=== PATIENT | male | born 1960 | race African-American/Black ===

== ENCOUNTER 2021-01-14 16:07 | Emergency (ER) | payer SELFPAY ==
[~2021-01-14] VITALS: Ht 190.5 cm; Wt 90.0 kg
[~2021-01-14 16:07] MED LIST: AMLO-186 PO; ASPI-886 PO; CARV12.511 PO; CLON0.3T PO; Folic Acid PO; HYDR-2869 PO; ISOS20TA6 PO; THIA100T22 PO
[2021-01-14] MEDS ORDERED: fentaNYL PF VIAL 100 MCG/2 ML VIAL IVP ONE (16:30)
--- NOTE | 2021-01-14 16:34 | PHYS DOC ---
Past Medical History Past Medical History: High Cholesterol, Hypertension, Stroke Additional Past Medical Histor: "STROKE X2", ESRD, "IRREGULAR HEART" Past Surgical History: Other Additional Past Surgical Histo: DIALYSIS CATHETER PLACEMENT Smoking Status: Current Every Day Smoker Alcohol Use: Heavy General Adult EDM: Chief Complaint: BACK PAIN OR INJURY HPI: HPI: Patient is a 60 year old male who presents with bilateral back pain and dizziness that started today. States he went to his dialysis place and he told him he needed to come to emergency room. States he did go to work today and he should have. He states that he has been drinking enough water and has been urinating enough. He states he just does not feel good. He denies chest pain, shortness of air, fever, numbness or tingling, focal weakness, vision change, headache, dizziness, syncope, mannie pain, nausea, vomiting, urinary symptoms, diarrhea. Patient was recently diagnosed in October with acute renal failure. He was last admitted for hyperkalemia in November. Patient states he does go to dialysis Thursday, , Saturdays. He states he did go Thursday. He sees Dr. Remy. He has a history of smoking, CVA x2, high cholesterol, a right chest dialysis port, alcoholism, renal failure, hyperkalemia and hypertension. He rates his pain a aching 10 out of 10 at this time. He denies loss of bowel bladder. Review of Systems: Review of Systems: Constitutional: Denies fever or chills. [] Eyes: Denies change in visual acuity. [] HENT: Denies nasal congestion or sore throat. [] Respiratory: Denies cough or shortness of breath. [] Cardiovascular: Denies chest pain or edema. [] GI: Denies abdominal pain, nausea, vomiting, bloody stools or diarrhea. [] : Denies dysuria. [] Musculoskeletal: + bilateral back pain or joint pain. [] Integument: Denies rash. [] Neurologic: Denies headache, focal weakness or sensory changes. +dizziness[] Endocrine: Denies polyuria or polydipsia. [] Lymphatic: Denies swollen glands. [] Psychiatric: Denies depression or anxiety. [] Heart Score: C/O Chest Pain: No HEART Score for Chest Pain: HEART Score for Chest Pain Response (Comments) Value History Slighlty/Non-Suspicious 0 ECG Normal 0 Age >45 - < 65 1 Risk Factors 1 or 2 Risk Factors 1 Troponin < Normal Limit 0 Total 2 Risk Factors: Risk Factors: DM, Current or recent (<one month) smoker, HTN, HLP, family history of CAD, obesity. Risk Scores: Score 0 - 3: 2.5% MACE over next 6 weeks - Discharge Home Score 4 - 6: 20.3% MACE over next 6 weeks - Admit for Clinical Observation Score 7 - 10: 72.7% MACE over next 6 weeks - Early Invasive Strategies Current Medications: Current Medications Medications (Trade) Dose Ordered Sig/Remi Start Time Stop Time Status Last Admin Dose Admin Fentanyl Citrate (Fentanyl 2ml Vial) 50 mcg 1X ONCE 01/14/21 16:30 01/14/21 16:31 Allergies: Allergies: Allergies Coded Allergies Type Severity Reaction Last Updated Verified lisinopril Allergy Severe Swelling 11/04/20 Yes Physical Exam: PE: Constitutional: Well developed, well nourished, no acute distress, non-toxic appearance. [] HENT: Normocephalic, atraumatic, bilateral external ears normal, oropharynx moist, no oral exudates, nose normal. [] Eyes: PERRLA, EOMI, conjunctiva normal, no discharge. [] Neck: Normal range of motion, no tenderness, supple, no stridor. [] Cardiovascular:Heart rate regular rhythm, no murmur [] Lungs & Thorax: Bilateral breath sounds clear to auscultation [] Abdomen: Bowel sounds normal, soft, no tenderness, no masses, no pulsatile masses. [] Skin: Warm, dry, no erythema, no rash. [] Back: No tenderness, bilateral CVA tenderness. [] Extremities: No tenderness, no cyanosis, no clubbing, ROM intact, no edema. [] Neurologic: Alert and oriented X 3, normal motor function, normal sensory function, no focal deficits noted. [] Psychologic: Affect normal, judgement normal, mood normal. [] Current Patient Data: Vital Signs: Vital Signs Date Time Temp Pulse Resp B/P (MAP) Pulse Ox O2 Delivery O2 Flow Rate FiO2 01/14/21 16:19 98.9 77 12 150/95 (102) 97 Room Air 98.9 EKG: EK and read by Dr Dubois as Sinus Rhythm and no STEMI Radiology/Procedures: Radiology/Procedures: [] Impression: [facility] [address] [place] [address] IMAGING REPORT Signed PATIENT: LITA PASTRANA ACCOUNT: [id number] : 1960 LOCATION: ER AGE: 60 SEX: M EXAM STATUS: REG ER ORD. PHYSICIAN: MOLLY SIERRA APRN REASON: dizziness PROCEDURE: PORTABLE CHEST 1V XR CHEST 1V History: Reason: dizziness / Spl. Instructions: / History: Comparison: December 11, 2020 Findings: No consolidation or pleural effusion. Normal heart size. No pneumothorax. Right IJ central line with tip projecting over the cavoatrial junction. Impression: 1. No acute cardiopulmonary process. Electronically signed by: Mk Sousa DO (01/14/2021 5:25 PM) [id number] DICTATED and SIGNED BY: MK SOUSA DO DATE: 01/14/21 [id number] [facility] [address] [place] [address] IMAGING REPORT Signed PATIENT: LITA PASTRANA ACCOUNT: [id number] : 1960 LOCATION: ER AGE: 60 SEX: M EXAM STATUS: REG ER ORD. PHYSICIAN: MOLLY SIERRA APRN REASON: bilateral flank pain PROCEDURE: CT ABDOMEN PELVIS WO CONTRAST Exam: CT of abdomen and pelvis without contrast INDICATION: Bilateral flank pain TECHNIQUE: Sequential axial images through the abdomen and pelvis obtained without IV contrast. Sagittal and coronal reformatted images were reconstructed from the axial data and reviewed. Exposure: One or more of the following in the visualized dose reduction techniques were utilized for this examination: 1. Automated exposure control 2. Adjustment of the MA and/or KV according to patient size 3. Use of iterative of reconstructive technique Comparisons: 12/11/2020 FINDINGS: Heart size is normal. No pericardial effusion visualized lung bases are clear. No pleural Liver, spleen, pancreas and adrenals are unremarkable. Gallbladder is decompressed. No perinephric inflammation or hydronephrosis. No renal or ureteral calculi are identified. Bladder is decompressed not well evaluated. Prostate is not enlarged. Large and small bowel are unremarkable. Appendix is normal. No free intra- abdominal air or fluid. No obstruction. Abdominal aorta has a normal course and caliber. No enlarged intra-abdominal lymph nodes are identified. No suspicious osseous lesions or acute fractures. IMPRESSION: No acute process identified within the abdomen or pelvis. Electronically signed by: Leydi Murphy MD (01/14/2021 6:36 PM) [facility] DICTATED and SIGNED BY: LEYDI MURPHY MD DATE: 01/14/21 [id number] [facility] [address] [place], [place] [id number] IMAGING REPORT Signed PATIENT: LITA PASTRANA ACCOUNT: [id number] : 1960 LOCATION: ER AGE: 60 SEX: M EXAM STATUS: REG ER ORD. PHYSICIAN: MOLLY SIERRA APRN REASON: DIZZINESS PROCEDURE: CT HEAD WO CONTRAST Exam: CT head INDICATION: Dizziness TECHNIQUE: Sequential axial images through the head were obtained without the administration of IV contrast. Exposure: One or more of the following in the visualized dose reduction techniques were utilized for this examination: 1. Automated exposure control 2. Adjustment of the MA and/or KV according to patient size 3. Use of iterative of reconstructive technique Comparisons: 11/04/2020 FINDINGS: No focal parenchymal lesion or hemorrhage is identified. There is no midline shift or sulcal effacement. Patchy evidence in the periventricular white matter, similar prior. No acute vascular territory infarction is identified. Bain-white distinction is preserved. The ventricular system is within normal limits without compression hydroce phalus. The basal cisterns are well maintained. The visualized portions of the paranasal sinuses and mastoid air cells are well- pneumatized. No acute fractures. IMPRESSION: No acute intracranial abnormality. Electronically signed by: Leydi Murphy MD (01/14/2021 8:14 PM) [facility] DICTATED and SIGNED BY: LEYDI MURPHY MD DATE: 01/14/21 [id number] [facility] [address] [place] [address] IMAGING REPORT Signed PATIENT: LITA PASTRANA ACCOUNT: [id number] : 1960 LOCATION: ER AGE: 60 SEX: M EXAM STATUS: REG ER ORD. PHYSICIAN: MOLLY SIERRA APRN REASON: DIZZINESS PROCEDURE: CT HEAD WO CONTRAST Exam: CT head INDICATION: Dizziness TECHNIQUE: Sequential axial images through the head were obtained without the administration of IV contrast. Exposure: One or more of the following in the visualized dose reduction techniques were utilized for this examination: 1. Automated exposure control 2. Adjustment of the MA and/or KV according to patient size 3. Use of iterative of reconstructive technique Comparisons: 11/04/2020 FINDINGS: No focal parenchymal lesion or hemorrhage is identified. There is no midline shift or sulcal effacement. Patchy evidence in the periventricular white matter, similar prior. No acute vascular territory infarction is identified. Bain-white distinction is preserved. The ventricular system is within normal limits without compression hydrocephalus. The basal cisterns are well maintained. The visualized portions of the paranasal sinuses and mastoid air cells are well- pneumatized. No acute fractures. IMPRESSION: No acute intracranial abnormality. Electronically signed by: Leydi Murphy MD (01/14/2021 8:14 PM) [facility] DICTATED and SIGNED BY: LEYDI MURPHY MD DATE: 01/14/[id number] 0 Course & Med Decision Making: Course & Med Decision Making Pertinent Labs and Imaging studies reviewed. (See chart for details) See HPI. Alert and oriented x4. Ambulatory with a steady gait. Speaks in full clear sentences. No focal deficits. skin pink warm and dry. Bilateral CVA tenderness. Denies any kind of injury. Lungs are clear all station all lobes. Patient was confused as to why we had to do more blood work on him after he had blood work done couple weeks ago. It was explained to him that today is a new day and things could have changed. He states his understanding. No saddle paresthesias. Sensations intact. The pain he is having is nonradiating. I called and spoke to Dr. Block who is on-call for nephrology to let him know about how the patient was presenting and his lab work. He states to give him some fluid and see if that makes him better. He states that he can probably be discharged home. He states Thursday [facility] does consult him he would make sure that he gets his dialysis tomorrow. After fluids are given patient states he is feeling much better. He also had alcohol present in his system. Patient states he is going to follow-up with dialysis tomorrow scheduled. [] Dragon Disclaimer: Dragon Disclaimer: This electronic medical record was generated, in whole or in part, using a voice recognition dictation system. Departure Departure Impression: Primary Impression: Dizziness Additional Impression: Bilateral flank pain Disposition: HOME / SELF CARE / HOMELESS Condition: STABLE Referrals: NO PCP (PCP) Patient Instructions: Alcohol Intoxication, Dizziness Additional Instructions: Stop drinking alcohol. Follow-up with dialysis tomorrow as you are scheduled to have. Drink plenty of fluids. If anything worsens come back to the emergency room. MOLLY SIERRA APRN Jan 14, 2021 16:33
[2021-01-14 16:44] LABS: BASO # 0.1 x10^3/uL (0.0-0.2); BASO % 1 % (0-3); EOS # 0.1 x10^3/uL (0.0-0.7); EOS % 2 % (0-3); HEMATOCRIT 31.5 % (39.0-53.0); HEMOGLOBIN 10.4 g/dL (13.0-17.5); LYMPH # 1.5 x10^3/uL (1.0-4.8); LYMPH % 23 % (24-48); MEAN CORPUSCULAR HEMOGLOBIN 30 pg (25-35); MEAN CORPUSCULAR HGB CONC 33 g/dL (31-37); MEAN CORPUSCULAR VOLUME 92 fL (79-100); MONO # 0.7 x10^3/uL (0.0-1.1); MONO % 10 % (0-9); NEUT # 4.2 x10^3/uL (1.8-7.7); NEUT % 64 % (31-73); PLATELET COUNT 189 x10^3/uL (140-400); RED BLOOD COUNT 3.44 x10^6/uL (4.30-5.70); RED CELL DISTRIBUTION WIDTH 16.9 % (11.5-14.5); WHITE BLOOD COUNT 6.5 x10^3/uL (4.0-11.0)
[2021-01-14 16:55] LABS: CREATININE 5.3 mg/dL (0.7-1.3); GFR 13.6; POTASSIUM 4.1 mmol/L (3.5-5.1)
[2021-01-14 17:00] LABS: ALBUMIN 3.6 g/dL (3.4-5.0); MAGNESIUM 2.5 mg/dL (1.8-2.4); TOTAL BILIRUBIN 0.2 mg/dL (0.2-1.0); TOTAL PROTEIN 7.3 g/dL (6.4-8.2)
--- NOTE | 2021-01-14 17:04 | EKG ---
[facility] [address] [place] [address] Test Date: 2021-01-14 Test Time: 16:33:06 Pat Name: LITA PASTRANA Department: Room: Gender: [employer]: : 1960 Requested By: MOLLY SIERRA Order Number: [id number] Reading MD: Measurements Intervals [place] Rate: 66 P: 64 FL: 190 QRS: 35 QRSD: 88 T: 73 QT: 436 QTc: 459 Interpretive Statements SINUS RHYTHM AMPLITUDE CRITERIA FOR LVH T ABNORMALITY IN LATERAL LEADS ABNORMAL ECG RI6.02 No previous ECG available for comparison
[2021-01-14] MEDS ORDERED: fentaNYL PF VIAL 100 MCG/2 ML VIAL ONE (17:14)
--- NOTE | 2021-01-14 17:27 | RAD ---
XR CHEST 1V History: Reason: dizziness / Spl. Instructions: / History: Comparison: December 11, 2020 Findings: No consolidation or pleural effusion. Normal heart size. No pneumothorax. Right IJ central line with tip projecting over the cavoatrial junction. Impression: 1. No acute cardiopulmonary process. Electronically signed by: Mk Sousa DO (01/14/2021 5:25 PM) [id number]
[2021-01-14] MEDS ORDERED: IV NORMAL SALINE 1000ML BAG 1,000 ML IV ONE (18:15)
[2021-01-14 18:29] LABS: BILIRUBIN,URINE NEGATIVE (NEG); CLARITY,URINE CLEAR; COLOR,URINE YELLOW; NITRITE,URINE NEGATIVE (NEG); PROTEIN,URINE 100 mg/dL (NEG-TRACE)
[2021-01-14 18:33] LABS: BARBITURATES NEG (NEG); BENZODIAZEPINES NEG (NEG); CANNABINOIDS NEG (NEG); COCAINE NEG (NEG); METHADONE NEG (NEG); OPIATES NEG (NEG); PHENCYCLIDINE NEG (NEG)
--- NOTE | 2021-01-14 18:39 | RAD ---
Exam: CT of abdomen and pelvis without contrast INDICATION: Bilateral flank pain TECHNIQUE: Sequential axial images through the abdomen and pelvis obtained without IV contrast. Sagit karsten and coronal reformatted images were reconstructed from the axial data and reviewed. Exposure: One or more of the following in the visualized dose reduction techniques were utilized for this examination: 1. Automated exposure control 2. Adjustment of the MA and/or KV according to patient size 3. Use of iterative of reconstructive technique Comparisons: 12/11/2020 FINDINGS: Heart size is normal. No pericardial effusion visualized lung bases are clear. No pleural Liver, spleen, pancreas and adrenals are unremarkable. Gallbladder is decompressed. No perinephric inflammation or hydronephrosis. No renal or ureteral calculi are identified. Bladder is decompressed not well evaluated. Prostate is not enlarged. Large and small bowel are unremarkable. Appendix is normal. No free intra-abdominal air or fluid. No obstruction. Abdominal aorta has a normal course and caliber. No enlarged intra-abdominal lymph nodes are identified. No suspicious osseous lesions or acute fractures. IMPRESSION: No acute process identified within the abdomen or pelvis. Electronically signed by: Leydi Berkowitz MD (01/14/2021 6:36 PM) [facility]
[2021-01-14 18:42] LABS: AMPHETAMINE/METHAMPHETAMINE NEG (NEG)
[2021-01-14 18:58] LABS: HYALINE CASTS, URINE MODERATE /HPF
[2021-01-14 18:59] LABS: BACTERIA,URINE 0 /HPF (0-FEW)
[2021-01-14 20:00] VITALS: BP 179/101
--- NOTE | 2021-01-14 20:17 | RAD ---
Exam: CT head INDICATION: Dizziness TECHNIQUE: Sequential axial images through the head were obtained without the administration of IV co ntrast. Exposure: One or more of the following in the visualized dose reduction techniques were utilized for this examination: 1. Automated exposure control 2. Adjustment of the MA and/or KV according to patient size 3. Use of iterative of reconstructive technique Comparisons: 11/04/2020 FINDINGS: No focal parenchymal lesion or hemorrhage is identified. There is no midline shift or sulcal effaceme nt. Patchy evidence in the periventricular white matter, similar prior. No acute vascular territory infar ction is identified. Bain-white distinction is preserved. The ventricular system is within normal limits without compression hydrocephalus. The basal cisterns are well maintained. The visualized portions of the paranasal sinuses and mastoid air cells are well-pneumatized. No acute fractures. IMPRESSION: No acute intracranial abnormality. Electronically signed by: Leyid Berkowitz MD (01/14/2021 8:14 PM) [facility]
== END 2021-01-14 21:13 | disposition home or self-care (01) ==
LOC: ER 16:07
DX: R42 Dizziness and giddiness (principal); R10.9 Unspecified abdominal pain; E78.00 Pure hypercholesterolemia, unspecified; F17.200 Nicotine dependence, unspecified, uncomplicated; I12.0 Hypertensive chronic kidney disease with stage 5 chronic kidney disease or end stage renal disease; N18.6 End stage renal disease; Z99.2 Dependence on renal dialysis; Z86.73 Personal history of transient ischemic attack (TIA), and cerebral infarction without residual deficits; Z88.6 Allergy status to analgesic agent
CPT/HCPCS: 36415; 70450; 71045; 74176; 80053; 80307; 81001; 83735; 84484; 85025; 93005; 96361; 96374; 99285; G0480; J3010; J7030

== ENCOUNTER 2021-07-02 15:32 | Inpatient (IN) | payer MEDICARE, OTHER ==
[~2021-07-02] VITALS: Ht 190.5 cm; Wt 61.6 kg
[2021-07-02 19:00] VITALS: BP 127/96
--- NOTE | 2021-07-02 19:30 | RAD ---
EXAM: CHEST ONE VIEW. HISTORY: Fatigue. COMPARISON: 01/14/2021. FINDINGS: A frontal view of the chest is obtained. A right internal jugular hemodialysis catheter has its tip in the superior cavoatrial junction. There are no confluent infiltrates. There is no pneumothorax or pleural effusion. The heart is not en larged. Hyperinflation suggests chronic obstructive pulmonary disease. IMPRESSION: 1. Chronic obstructive pulmonary disease. No confluent infiltrates. Electronically signed by: Abilio Doran MD (07/02/2021 7:28 PM) [facility]
[2021-07-02 20:09] LABS: BASO % 0 % (0-3); EOS % 1 % (0-3); HEMATOCRIT 40.9 % (39.0-53.0); HEMOGLOBIN 14.5 g/dL (13.0-17.5); LYMPH # 0.5 x10^3/uL (1.0-4.8); LYMPH % 5 % (24-48); MEAN CORPUSCULAR HEMOGLOBIN 32 pg (25-35); MEAN CORPUSCULAR HGB CONC 35 g/dL (31-37); MEAN CORPUSCULAR VOLUME 91 fL (79-100); MONO # 0.5 x10^3/uL (0.0-1.1); MONO % 6 % (0-9); NEUT # 8.4 x10^3/uL (1.8-7.7); NEUT % 88 % (31-73); PLATELET COUNT 163 x10^3/uL (140-400); RED BLOOD COUNT 4.47 x10^6/uL (4.30-5.70); RED CELL DISTRIBUTION WIDTH 14.2 % (11.5-14.5); WHITE BLOOD COUNT 9.5 x10^3/uL (4.0-11.0)
[2021-07-02 20:12] LABS: CALCIUM 9.4 mg/dL (8.5-10.1); CREATININE 19.8 mg/dL (0.7-1.3); POTASSIUM 5.8 mmol/L (3.5-5.1)
[2021-07-02 20:15] LABS: INFLUENZA A PATIENT NEGATIVE (NEGATIVE); INFLUENZA B PATIENT NEGATIVE (NEGATIVE)
[2021-07-02 20:18] LABS: ALBUMIN 4.1 g/dL (3.4-5.0); ALBUMIN/GLOBULIN RATIO 0.8 (1.0-1.7); TOTAL BILIRUBIN 0.5 mg/dL (0.2-1.0); TOTAL PROTEIN 9.4 g/dL (6.4-8.2)
--- NOTE | 2021-07-02 21:12 | PHYS DOC ---
Past Medical History Past Medical History: High Cholesterol, Hypertension, Stroke Additional Past Medical Histor: "STROKE X2", ESRD, "IRREGULAR HEART" (CHANTALE KUMAR BAND SAW FILER) Past Surgical History: Other Additional Past Surgical Histo: DIALYSIS CATHETER PLACEMENT (CHANTALE KUMAR BAND SAW FILER) Smoking Status: Unknown if ever smoked Alcohol Use: None (CHANTALE KUMAR BAND SAW FILER) General Adult EDM: Chief Complaint: FATIGUE HPI: HPI: Patient is a 61 year old male patient with history of hypertension, CVA x2, current smoker, alcohol abuse, end-stage kidney disease on dialysis, but cannot remember the last time he was dialyzed but believes it was a week ago, presenting today complaining of generalized weakness and fatigue, symptoms have been going on for almost a week. Denies any chest pain or shortness of breath. Patient states he is currently homeless, he states he normally lives with his brother or sister or in his vehicle. (CHANTALE KUMAR BAND SAW FILER) Review of Systems: Review of Systems: Constitutional: Reports generalized weakness and fatigue. Denies fever or chills. [] Eyes: Denies change in visual acuity. [] HENT: Denies nasal congestion or sore throat. [] Respiratory: Denies cough or shortness of breath. [] Cardiovascular: Denies chest pain or edema. [] GI: Denies abdominal pain, nausea, vomiting, bloody stools or diarrhea. [] : Denies dysuria. [] Musculoskeletal: Denies back pain or joint pain. [] Integument: Denies rash. [] Neurologic: Denies headache, focal weakness or sensory changes. [] Psychiatric: Denies depression or anxiety. [] (CHANTALE KUMAR BAND SAW FILER) Heart Score: C/O Chest Pain: N/A Risk Factors: Risk Factors: DM, Current or recent (<one month) smoker, HTN, HLP, family history of CAD, obesity. Risk Scores: Score 0 - 3: 2.5% MACE over next 6 weeks - Discharge Home Score 4 - 6: 20.3% MACE over next 6 weeks - Admit for Clinical Observation Score 7 - 10: 72.7% MACE over next 6 weeks - Early Invasive Strategies (CHANTALE KUMAR BAND SAW FILER) Allergies: Allergies: Allergies Coded Allergies Type Severity Reaction Last Updated Verified lisinopril Allergy Severe Swelling 11/04/20 Yes (CHANTALE KUMAR BAND [employer]W FILER) Physical Exam: PE: Constitutional: Thin appearing patient, no acute distress, non-toxic appearance. [] HENT: Normocephalic, atraumatic, bilateral external ears normal, oropharynx moist, no oral exudates, nose normal. [] Eyes: PERRLA, EOMI, conjunctiva normal, no discharge. [] Neck: Normal range of motion, no tenderness, supple, no stridor. [] Cardiovascular: Tachycardic, hemodialysis catheter noted on the right upper chest Lungs & Thorax: Bilateral breath sounds clear to auscultation [] Abdomen: Bowel sounds normal, soft, no tenderness, no masses, no pulsatile masses. [] Skin: Warm, dry, no erythema, no rash. [] Back: No tenderness, no CVA tenderness. [] Extremities: No tenderness, no cyanosis, no clubbing, ROM intact, no edema. [] Neurologic: Alert and oriented X 3, normal motor function, normal sensory function, no focal deficits noted. [] Psychologic: Flat affect, depressed mood (CHANTALE KUMAR BAND SAW FILER) Current Patient Data: Labs: Laboratory Tests Test 07/02/21 19:45 White Blood Count 9.5 x10^3/uL (4.0-11.0) Red Blood Count 4.47 x10^6/uL (4.30-5.70) Hemoglobin 14.5 g/dL (13.0-17.5) Hematocrit 40.9 % (39.0-53.0) Mean Corpuscular Volume 91 fL (79-100) Mean Corpuscular Hemoglobin 32 pg (25-35) Mean Corpuscular Hemoglobin Concent 35 g/dL (31-37) Red Cell Distribution Width 14.2 % (11.5-14.5) Platelet Count 163 x10^3/uL (140-400) Neutrophils (%) (Auto) 88 % (31-73) H Lymphocytes (%) (Auto) 5 % (24-48) L Monocytes (%) (Auto) 6 % (0-9) Eosinophils (%) (Auto) 1 % (0-3) Basophils (%) (Auto) 0 % (0-3) Neutrophils # (Auto) 8.4 x10^3/uL (1.8-7.7) H Lymphocytes # (Auto) 0.5 x10^3/uL (1.0-4.8) L Monocytes # (Auto) 0.5 x10^3/uL (0.0-1.1) Eosinophils # (Auto) 0.0 x10^3/uL (0.0-0.7) Basophils # (Auto) 0.0 x10^3/uL (0.0-0.2) Sodium Level 134 mmol/L (136-145) L Potassium Level 5.8 mmol/L (3.5-5.1) H Chloride Level 94 mmol/L (98-107) L Carbon Dioxide Level 17 mmol/L (21-32) L Anion Gap 23 (6-14) H Blood Urea Nitrogen 232 mg/dL (8-26) H Creatinine 19.8 mg/dL (0.7-1.3) H Estimated GFR (Cockcroft-Gault) 3.0 BUN/Creatinine Ratio 12 (6-20) Glucose Level 136 mg/dL (70-99) H Lactic Acid Level 1.6 mmol/L (0.4-2.0) Calcium Level 9.4 mg/dL (8.5-10.1) Total Bilirubin 0.5 mg/dL (0.2-1.0) Aspartate Amino Transferase (AST) 7 U/L (15-37) L Alanine Aminotransferase (ALT) 15 U/L (16-63) L Alkaline Phosphatase 77 U/L (46-116) Total Protein 9.4 g/dL (6.4-8.2) H Albumin 4.1 g/dL (3.4-5.0) Albumin/Globulin Ratio 0.8 (1.0-1.7) L Influenza Type A Antigen Negative (NEGATIVE) Influenza Type B Antigen Negative (NEGATIVE) SARS-CoV-2 Antigen (Rapid) Negative (NEGATIVE) Laboratory Tests 07/02/21 19:45 Laboratory Tests 07/02/21 19:45 Vital Signs: Vital Signs Date Time Temp Pulse Resp B/P (MAP) Pulse Ox O2 Delivery O2 Flow Rate FiO2 07/02/21 16:01 97.5 106 14 140/102 (115) 91 Room Air 97.5 (CHANTALE KUMAR BAND [employer]W FILER) EKG: EK EKG interpreted by Dr. Landry sinus rhythm heart rate 90, no axis deviation, OH interval 174, QTc 454, peaked T waves in V3, V4, V5, no STEMI. EKG is similar to the previous EKGs (CHANTALE KUMAR APRN) Radiology/Procedures: Radiology/Procedures: []PROCEDURE: CHEST AP ONLY EXAM: CHEST ONE VIEW. HISTORY: Fatigue. COMPARISON: 01/14/2021. FINDINGS: A frontal view of the chest is obtained. A right internal jugular hemodialysis catheter has its tip in the superior cavoatrial junction. There are no confluent infiltrates. There is no pneumothorax or pleural effusion. The heart is not enlarged. Hyperinflation suggests chronic obstructive pulmonary disease. IMPRESSION: 1. Chronic obstructive pulmonary disease. No confluent infiltrates. Electronically signed by: Abilio Doran MD (07/02/2021 7:28 PM) [facility] DICTATED and SIGNED BY: ROSE DORAN MD DATE: 07/02/21 [id number] (CHANTALE KUMAR APRN) Course & Med Decision Making: Course & Med Decision Making Pertinent Labs and Imaging studies reviewed. (See chart for details) This is a 61-year-old male patient end-stage renal disease on dialysis, last time dialyzed 1 week ago presenting today with generalized weakness and fatigue. CBC no acute findings, CMP with potassium of 5.8, spoke with Dr. Block, he requested we give patient Kayexalate and he will dialyze patient tomorrow morning Spoke with Dr. Barnhart who accepted patient for admission (CHANTALE KUMAR APRN) Dragon Disclaimer: Dragon Disclaimer: This electronic medical record was generated, in whole or in part, using a voice recognition dictation system. (CHANTALE KUMAR APRN) Departure Departure Impression: Primary Impression: ESRD needing dialysis Additional Impression: Hyperkalemia Disposition: ADMITTED INPATIENT Condition: STABLE Referrals: NO PCP (PCP) Attending Signature Attending Signature I have reviewed the PA/CLAIMS ACCOUNT MANAGER's note and plan of care. I was available for consu ltation as needed during the patient's visit in the emergency department. I agree with the clinical impression, plan, and disposition. (ABILIO LANDRY DO) CHANTALE KUMAR APRN Jul 02, 2021 21:12 ABILIO LANDRY DO Jul 03, 2021 20:25
[2021-07-02] MEDS ORDERED: SODIUM POLYSTYRENE SULFON/SORB 15 GM/60 ML ORAL.SUSP. PO ONE (21:45)
[2021-07-03] MEDS ORDERED: MORPHINE SULFATE 2 MG/ML INJ. IVP PRN
--- NOTE | 2021-07-03 00:38 | NUR ---
The patient, LITA PASTRANA, 61 y/o, M admitted by ARLEN RODRÍGUEZ MD, was given written information regarding hospital policies, unit procedures and contact persons. Valuables were checked and left with him.
[2021-07-03 00:39] VITALS: BP 171/128
[2021-07-03] MEDS ORDERED: PANTOPRAZOLE IV PUSH 40 MG VIAL. IVP ONE (00:45)
[2021-07-03 03:00] VITALS: BP 146/113
[2021-07-03 06:45] VITALS: BP 139/105
[2021-07-03 07:11] LABS: HEMATOCRIT 38.5 % (39.0-53.0); HEMOGLOBIN 13.3 g/dL (13.0-17.5)
[2021-07-03 07:15] LABS: CALCIUM 9.1 mg/dL (8.5-10.1); CREATININE 19.7 mg/dL (0.7-1.3)
--- NOTE | 2021-07-03 09:39 | NUR ---
SW following. Discussed with RN, pt homeless (used to live with family), room air, renal diet. COVID-19 positive. Pt does dialysis T, , Sa. Will have to determine new clinic for pt to do dialysis at due to being COVID positive. SW will continue to follow.
[2021-07-03] MEDS ORDERED: ONDANSETRON PF 4 MG/2 ML VIAL. IVP PRN ×2 (11:00)
[2021-07-03] MEDS ORDERED: oxyCODONE/APAP 5/325 1 TAB TABLET PO PRN ×2 (11:00)
[2021-07-03] MEDS ORDERED: ZOLPIDEM 5 MG TABLET. PO PRN (11:00)
[2021-07-03] MEDS ORDERED: ELECTROLYTE (NON-ICU) PROTOCOL. MC PRN (11:00)
[2021-07-03] MEDS ORDERED: CALCIUM CARBONATE 500 MG TAB.CHEW PO PRN (11:00)
[2021-07-03] MEDS ORDERED: ACETAMINOPHEN 325 MG TABLET. PO PRN (11:00)
[2021-07-03] MEDS: ASPIRIN ENTERIC COATED 81 MG TABLET.DR. PO SCH (12:00)
[2021-07-03] MEDS: CARVEDILOL 12.5 MG TABLET. PO SCH ×2 (12:00→16:43)
[2021-07-03] MEDS: THIAMINE 100 MG TABLET. PO SCH (12:00)
[2021-07-03] MEDS: FOLIC ACID 1 MG TABLET. PO SCH (12:00)
[2021-07-03 12:06] VITALS: BP 150/108
--- NOTE | 2021-07-03 12:27 | PDOC1 ---
History and Physical Date of Service: DOS: DATE: 07/03/21 TIME: 12:21 Chief Complaint: Chief Complain: weakness, fatigue, missed dialysis History of Present Illness: HPI: Patient is a 61 year old male patient with history of hypertension, CVA x2, current smoker, alcohol abuse, end-stage kidney disease on dialysis, cannot remember the last time he was dialyzed but believes it was a week ago, prese nting today complaining of generalized weakness and fatigue, symptoms have been going on for almost a week. No COVID vaccine. Denies any chest pain or shortness of breath. Patient states he is currently homeless, he states he normally lives with his brother or sister or in his vehicle. Past Medical/Surgical History: PMH/PSH: Past Medical History: High Cholesterol, Hypertension, Stroke Additional Past Medical Histor: "STROKE X2", ESRD, "IRREGULAR HEART" Allergies: Allergies: Coded Allergies: lisinopril (Verified Allergy, Severe, Swelling, 11/04/20) Family History: Family History: HTN Social History: Social History: Tobacco use. History of alcohol use. Denies drug use to me Current Medications: Current Medications Current Medications Sodium Polystyrene Sulfonate (Kayexalate) 30 gm 1X ONCE PO Last administered on 07/03/21at 00:17; Start 07/02/21 at 21:45; Stop 07/02/21 at 21:46; Status DC Ondansetron HCl (Zofran) 4 mg PRN Q8HRS PRN IVP NAUSEA/VOMITING Last administered on 07/03/21at 01:32; Start 07/03/21 at 00:00; Stop 07/03/21 at 23:59 Morphine Sulfate (Morphine Sulfate) 2 mg PRN Q2HR PRN IVP PAIN; Start 07/03/21 at 00:00; Stop 07/03/21 at 23:59 Pantoprazole Sodium (PROTONIX VIAL for IV PUSH) 40 mg 1X ONCE IVP Last administered on 07/03/21at 01:32; Start 07/03/21 at 00:45; Stop 07/03/21 at 0 0:46; Status DC Amlodipine Besylate (Norvasc) 5 mg DAILY PO ; Start 07/03/21 at 12:00 Aspirin (Ecotrin) 81 mg DAILYWBKFT PO ; Start 07/03/21 at 12:00 Carvedilol (Coreg) 12.5 mg BIDWMEALS PO ; Start 07/03/21 at 12:00 Isosorbide Mononitrate (Ismo) 20 mg BID92 PO ; Start 07/03/21 at 14:00 Thiamine Mononitrate (Vitamin B-1) 100 mg DAILY PO ; Start 07/03/21 at 12:00 Folic Acid (Folic Acid) 1 mg DAILY PO ; Start 07/03/21 at 12:00 Ondansetron HCl (Zofran) 4 mg PRN Q6HRS PRN IVP NAUSEA/VOMITING; Start 07/03/21 at 11:00 Calcium Carbonate/ Glycine (Tums) 500 mg PRN Q3HRS PRN PO UPSET STOMACH; Start 07/03/21 at 11:00 Zolpidem Tartrate (Ambien) 5 mg PRN QHS PRN PO INSOMNIA, MAY REPEAT IN 1HR; Start 07/03/21 at 11:00 Info (Non-Icu Electrolyte Protocol) 1 ea PRN DAILY PRN MC SEE COMMENTS; Start 07/03/21 at 11:00 Oxycodone/ Acetaminophen (Percocet 5/325) 1 tab PRN Q4HRS PRN PO MILD PAIN, 1ST CHOICE; Start 07/03/21 at 11:00 Oxycodone/ Acetaminophen (Percocet 5/325) 2 tab PRN Q4HRS PRN PO MODERATE PAIN, SEVERE PAIN; Start 07/03/21 at 11:00 Acetaminophen (Tylenol) 650 mg PRN Q6HRS PRN PO Headaches, Temp > 101.5F; Start 07/03/21 at 11:00 Senna/Docusate Sodium (Senna Plus) 1 tab BID PO ; Start 07/03/21 at 21:00 Heparin Sodium (Porcine) (Heparin Sodium) 5,000 unit Q12HR SQ ; Start 07/03/21 at 21:00 Active Scripts Active Isosorbide Mononitrate 20 Mg Tablet 20 Mg PO BID92 30 Days Aspirin Ec (Aspirin) 81 Mg Tablet.dr 81 Mg PO DAILYWBKFT 30 Days Amlodipine Besylate 5 Mg Tablet 5 Mg PO DAILY 30 Days Carvedilol (Carvedilol) 12.5 Mg Tablet 12.5 Mg PO BIDWMEALS 30 Days Hydralazine Hcl 50 Mg Tablet 100 Mg PO BID 30 Days Vitamin B-1 (Thiamine Mononitrate) 100 Mg Tablet 100 Mg PO DAILY 30 Days [Folic Acid] 1 MG Tablet 1 Mg PO DAILY 30 Days ROS: Review of Systems Review of System Unless noted in HPI 14 point review of systems was negative Physical Exam: Vital Signs: Vital Signs Date Time Temp Pulse Resp B/P (MAP) Pulse Ox O2 Delivery O2 Flow Rate FiO2 07/03/21 12:06 97.4 76 12 150/108 (122) 97 Room Air 97.4 Physcial Exam: GEN: No apparent distress. Alert and oriented HEENT: Normal cephalic, atraumatic, external auditory canals are patent EYES: Extraocular muscles are intact, pupil are equally round and reactive to light and accommodation MUSCULOSKELETAL: Well developed , well nourished, good range of motion ENDOCRINE: No thyromegaly was palpated LYMPHATICS: No cervical chain or axillary nodes were noted HEMATOPOIETIC: No bruising NECK: Supple, no JVD, no thyromegaly was noted LUNGS: Decreased, wheezing HEART: RRR, S1, S2 present. Peripheral pulses intact, no obvious murmurs noted ABDOMEN: Soft, nontender. Positive bowel sounds, no organomegaly, normal bowel sounds EXTREMITIES: Without clubbing, cyanosis, or edema. Pedal pulses intact. Negative Homans sign NEUROLOGIC: Normal speech and tone. A&O x 3, moves all extremities, no obvious focal deficits PSYCHIATRIC: Normal affect, normal mood. Stable SKIN: No ulcerations or rashes, good skin turgor, no jaundice VASCULAR: Good capillary refill, neurovascular bundle appears to be intact Labs: Labs: Laboratory Tests Test 07/02/21 19:45 07/03/21 06:50 White Blood Count 9.5 x10^3/uL (4.0-11.0) Red Blood Count 4.47 x10^6/uL (4.30-5.70) Hemoglobin 14.5 g/dL (13.0-17.5) 13.3 g/dL (13.0-17.5) Hematocrit 40.9 % (39.0-53.0) 38.5 % (39.0-53.0) Mean Corpuscular Volume 91 fL (79-100) Mean Corpuscular Hemoglobin 32 pg (25-35) Mean Corpuscular Hemoglobin Concent 35 g/dL (31-37) Red Cell Distribution Width 14.2 % (11.5-14.5) Platelet Count 163 x10^3/uL (140-400) Neutrophils (%) (Auto) 88 % (31-73) Lymphocytes (%) (Auto) 5 % (24-48) Monocytes (%) (Auto) 6 % (0-9) Eosinophils (%) (Auto) 1 % (0-3) Basophils (%) (Auto) 0 % (0-3) Neutrophils # (Auto) 8.4 x10^3/uL (1.8-7.7) Lymphocytes # (Auto) 0.5 x10^3/uL (1.0-4.8) Monocytes # (Auto) 0.5 x10^3/uL (0.0-1.1) Eosinophils # (Auto) 0.0 x10^3/uL (0.0-0.7) Basophils # (Auto) 0.0 x10^3/uL (0.0-0.2) Sodium Level 134 mmol/L (136-145) 135 mmol/L (136-145) Potassium Level 5.8 mmol/L (3.5-5.1) 6.0 mmol/L (3.5-5.1) Chloride Level 94 mmol/L (98-107) 94 mmol/L (98-107) Carbon Dioxide Level 17 mmol/L (21-32) 16 mmol/L (21-32) Anion Gap 23 (6-14) 25 (6-14) Blood Urea Nitrogen 232 mg/dL (8-26) 241 mg/dL (8-26) Creatinine 19.8 mg/dL (0.7-1.3) 19.7 mg/dL (0.7-1.3) Estimated GFR (Cockcroft-Gault) 3.0 3.0 BUN/Creatinine Ratio 12 (6-20) Glucose Level 136 mg/dL (70-99) 111 mg/dL (70-99) Lactic Acid Level 1.6 mmol/L (0.4-2.0) Calcium Level 9.4 mg/dL (8.5-10.1) 9.1 mg/dL (8.5-10.1) Total Bilirubin 0.5 mg/dL (0.2-1.0) Aspartate Amino Transf (AST/SGOT) 7 U/L (15-37) Alanine Aminotransferase (ALT/SGPT) 15 U/L (16-63) Alkaline Phosphatase 77 U/L (46-116) Total Protein 9.4 g/dL (6.4-8.2) Albumin 4.1 g/dL (3.4-5.0) Albumin/Globulin Ratio 0.8 (1.0-1.7) Influenza Type A Antigen Negative (NEGATIVE) Influenza Type B Antigen Negative (NEGATIVE) SARS-CoV-2 RNA (HUMBLE) Positive (Negative) SARS-CoV-2 Antigen (Rapid) Negative (NEGATIVE) Laboratory Tests Test 07/02/21 19:45 07/03/21 06:50 White Blood Count 9.5 x10^3/uL (4.0-11.0) Red Blood Count 4.47 x10^6/uL (4.30-5.70) Hemoglobin 14.5 g/dL (13.0-17.5) 13.3 g/dL (13.0-17.5) Hematocrit 40.9 % (39.0-53.0) 38.5 % (39.0-53.0) Mean Corpuscular Volume 91 fL (79-100) Mean Corpuscular Hemoglobin 32 pg (25-35) Mean Corpuscular Hemoglobin Concent 35 g/dL (31-37) Red Cell Distribution Width 14.2 % (11.5-14.5) Platelet Count 163 x10^3/uL (140-400) Neutrophils (%) (Auto) 88 % (31-73) Lymphocytes (%) (Auto) 5 % (24-48) Monocytes (%) (Auto) 6 % (0-9) Eosinophils (%) (Auto) 1 % (0-3) Basophils (%) (Auto) 0 % (0-3) Neutrophils # (Auto) 8.4 x10^3/uL (1.8-7.7) Lymphocytes # (Auto) 0.5 x10^3/uL (1.0-4.8) Monocytes # (Auto) 0.5 x10^3/uL (0.0-1.1) Eosinophils # (Auto) 0.0 x10^3/uL (0.0-0.7) Basophils # (Auto) 0.0 x10^3/uL (0.0-0.2) Sodium Level 134 mmol/L (136-145) 135 mmol/L (136-145) Potassium Level 5.8 mmol/L (3.5-5.1) 6.0 mmol/L (3.5-5.1) Chloride Level 94 mmol/L (98-107) 94 mmol/L (98-107) Carbon Dioxide Level 17 mmol/L (21-32) 16 mmol/L (21-32) Anion Gap 23 (6-14) 25 (6-14) Blood Urea Nitrogen 232 mg/dL (8-26) 241 mg/dL (8-26) Creatinine 19.8 mg/dL (0.7-1.3) 19.7 mg/dL (0.7-1.3) Estimated GFR (Cockcroft-Gault) 3.0 3.0 BUN/Creatinine Ratio 12 (6-20) Glucose Level 136 mg/dL (70-99) 111 mg/dL (70-99) Lactic Acid Level 1.6 mmol/L (0.4-2.0) Calcium Level 9.4 mg/dL (8.5-10.1) 9.1 mg/dL (8.5-10.1) Total Bilirubin 0.5 mg/dL (0.2-1.0) Aspartate Amino Transf (AST/SGOT) 7 U/L (15-37) Alanine Aminotransferase (ALT/SGPT) 15 U/L (16-63) Alkaline Phosphatase 77 U/L (46-116) Total Protein 9.4 g/dL (6.4-8.2) Albumin 4.1 g/dL (3.4-5.0) Albumin/Globulin Ratio 0.8 (1.0-1.7) Influenza Type A Antigen Negative (NEGATIVE) Influenza Type B Antigen Negative (NEGATIVE) SARS-CoV-2 RNA (HUMBLE) Positive (Negative) SARS-CoV-2 Antigen (Rapid) Negative (NEGATIVE) Assessment/Plan Assessment/Plan Fatigue secondary to COVID-19 and missed dialysis sessions, uremia. History hypertension hyperlipidemia stroke -Presented with worsening fatigue and weakness. Last several sessions of dialysis missed -Nephro consult to resume dialysis; notably uremic on labs -COVID-19 positive. Really no respiratory symptoms evaluated. Should he develop any respiratory symptoms we will add on steroids -DVT prophylaxis -Resume home meds as indicated -May need PAT consult Justifications for Admission Other Justification ARLEN RODRÍGUEZ MD Jul 03, 2021 12:27
[2021-07-03] MEDS ORDERED: IV NORMAL SALINE 1000ML BAG 1,000 ML IV PRN ×2 (13:00)
[2021-07-03] MEDS ORDERED: DIALYSIS PATIENT. MC PRN (13:00)
[2021-07-03] MEDS ORDERED: ALBUMIN HUMAN 25% 200 ML IV PRN (13:00)
[2021-07-03] MEDS: ISOSORBIDE MONONITRATE 20 MG TABLET PO SCH (13:58)
--- NOTE | 2021-07-03 15:25 | PDOC2 ---
CONSULT Date of Consult Date of Consult DATE: 07/03/21 TIME: 15:19 Reason for Consult Reason for Consult: ESRD UREMIA Referring Physician Referring Physician: ESRD AND HIGH K AND NOT FEELING WELL. Identification/Chief Complaint Chief Complaint CONFUSION, WEAKNESS, SOB Source Source: Chart review History of Present Illness Reason for Visit: THIS IS A 61 YR OLD WITH ESRD. HAS OP HD ON MWF. HAS BEEN VERY NON COMPLIANT. NO TX FOR AT LEAST ONE WEEK. HAS SOCIAL ISSUES. OCC LIVES WITH HIS BROTHER AND AT OTHER TIMES HAS BEEN LIVING OUT OF HIS CARE. LABS ARE C/W ESRD WITH HIGH. HE HAS SOME MILD SOB AND IS POS FOR COVID 19 ANTIGEN. HE DID NOT GET VACCINATED. HIS ESRD IS DUE TO HIS HTN Past Medical History Cardiovascular: HTN, Hyperlipidemia Pulmonary: No pertinent hx CENTRAL NERVOUS SYSTEM: CVA GI: Constipation Heme/Onc: Anemia NOS Hepatobiliary: No pertinent hx, Cirrhosis Psych: Addictions Rheumatologic: No pertinent hx Infectious disease: No pertinent hx Renal/: Chronic renal insuff Endocrine: No pertinent hx, Hyperparathyroidism Past Surgical History Past Surgical History RIGHT IJ TDC Family History Family History: Alcohol Abuse, Hypertension, Kidney Disease Social History Social History: Parent ALCOHOL: heavy Drugs: None Lives: Homeless Current Problem List Problem List Problems Medical Problems: (1) Hyperkalemia Status: Acute Current Medications Current Medications Current Medications Sodium Polystyrene Sulfonate (Kayexalate) 30 gm 1X ONCE PO Last administered on 07/03/21at 00:17; Start 07/02/21 at 21:45; Stop 07/02/21 at 21:46; Status DC Ondansetron HCl (Zofran) 4 mg PRN Q8HRS PRN IVP NAUSEA/VOMITING Last administered on 07/03/21at 01:32; Start 07/03/21 at 00:00; Stop 07/03/21 at 12:33; Status DC Morphine Sulfate (Morphine Sulfate) 2 mg PRN Q2HR PRN IVP PAIN; Start 07/03/21 at 00:00; Stop 07/03/21 at 23:59 Pantoprazole Sodium (PROTONIX VIAL for IV PUSH) 40 mg 1X ONCE IVP Last administered on 07/03/21at 01:32; Start 07/03/21 at 00:45; Stop 07/03/21 at 00:46; Status DC Amlodipine Besylate (Norvasc) 5 mg DAILY PO ; Start 07/03/21 at 12:00 Aspirin (Ecotrin) 81 mg DAILYWBKFT PO ; Start 07/03/21 at 12:00 Carvedilol (Coreg) 12.5 mg BIDWMEALS PO ; Start 07/03/21 at 12:00 Isosorbide Mononitrate (Ismo) 20 mg BID92 PO ; Start 07/03/21 at 14:00 Thiamine Mononitrate (Vitamin B-1) 100 mg DAILY PO ; Start 07/03/21 at 12:00 Folic Acid (Folic Acid) 1 mg DAILY PO ; Start 07/03/21 at 12:00 Ondansetron HCl (Zofran) 4 mg PRN Q6HRS PRN IVP NAUSEA/VOMITING; Start 07/03/21 at 11:00 Calcium Carbonate/ Glycine (Tums) 500 mg PRN Q3HRS PRN PO UPSET STOMACH; Start 07/03/21 at 11:00 Zolpidem Tartrate (Ambien) 5 mg PRN QHS PRN PO INSOMNIA, MAY REPEAT IN 1HR; Start 07/03/21 at 11:00 Info (Non-Icu Electrolyte Protocol) 1 ea PRN DAILY PRN MC SEE COMMENTS; Start 07/03/21 at 11:00 Oxycodone/ Acetaminophen (Percocet 5/325) 1 tab PRN Q4HRS PRN PO MILD PAIN, 1ST CHOICE; Start 07/03/21 at 11:00 Oxycodone/ Acetaminophen (Percocet 5/325) 2 tab PRN Q4HRS PRN PO MODERATE PAIN, SEVERE PAIN; Start 07/03/21 at 11:00 Acetaminophen (Tylenol) 650 mg PRN Q6HRS PRN PO Headaches, Temp > 101.5F; Start 07/03/21 at 11:00 Senna/Docusate Sodium (Senna Plus) 1 tab BID PO ; Start 07/03/21 at 21:00 Heparin Sodium (Porcine) (Heparin Sodium) 5,000 unit Q12HR SQ ; Start 07/03/21 at 21:00 Sodium Chloride 1,000 ml @ 1,000 mls/hr Q1H PRN IV hypotension; Start 07/03/21 at 13:00; Stop 07/03/21 at 18:59 Albumin Human 200 ml @ 200 mls/hr 1X PRN PRN IV Hypotension; Start 07/03/21 at 13:00; Stop 07/03/21 at 18:59 Sodium Chloride 1,000 ml @ 400 mls/hr Q2H30M PRN IV PATENCY; Start 07/03/21 at 13:00; Stop 07/04/21 at 00:59 Info (PHARMACY MONITORING -- do not chart) 1 each PRN DAILY PRN MC SEE COMMENTS; Start 07/03/21 at 13:00 Active Scripts Active Isosorbide Mononitrate 20 Mg Tablet 20 Mg PO BID92 30 Days Aspirin Ec (Aspirin) 81 Mg Tablet.dr 81 Mg PO DAILYWBKFT 30 Days Amlodipine Besylate 5 Mg Tablet 5 Mg PO DAILY 30 Days Carvedilol (Carvedilol) 12.5 Mg Tablet 12.5 Mg PO BIDWMEALS 30 Days Hydralazine Hcl 50 Mg Tablet 100 Mg PO BID 30 Days Vitamin B-1 (Thiamine Mononitrate) 100 Mg Tablet 100 Mg PO DAILY 30 Days [Folic Acid] 1 MG Tablet 1 Mg PO DAILY 30 Days Allergies Allergies: Coded Allergies: lisinopril (Verified Allergy, Severe, Swelling, 11/04/20) ROS Review of System UNABLE TO OBTAIN DUE TO CONFUSION Physical Exam General: Cooperative, No acute distress HEENT: Atraumatic, PERRLA Lungs: Clear to auscultation Heart: Regular rate Abdomen: Normal bowel sounds, Soft, No tenderness Skin: No rashes Neuro: Other (CONFUSED) Psych/Mental Status: Other (CONFUSED WITH NO ASYMMETRY) MUSCULOSKELETAL: No joint tenderness, No deformity, Other (RIGHT CHEST WALL TDC) Vitals VITALS Vital Signs Date Time Temp Pulse Resp B/P (MAP) Pulse Ox O2 Delivery O2 Flow Rate FiO2 07/03/21 12:06 97.4 76 12 150/108 (122) 97 Room Air 97.4 Labs Labs Laboratory Tests Test 07/02/21 19:45 07/03/21 06:50 White Blood Count 9.5 x10^3/uL (4.0-11.0) Red Blood Count 4.47 x10^6/uL (4.30-5.70) Hemoglobin 14.5 g/dL (13.0-17.5) 13.3 g/dL (13.0-17.5) Hematocrit 40.9 % (39.0-53.0) 38.5 % (39.0-53.0) Mean Corpuscular Volume 91 fL (79-100) Mean Corpuscular Hemoglobin 32 pg (25-35) Mean Corpuscular Hemoglobin Concent 35 g/dL (31-37) Red Cell Distribution Width 14.2 % (11.5-14.5) Platelet Count 163 x10^3/uL (140-400) Neutrophils (%) (Auto) 88 % (31-73) Lymphocytes (%) (Auto) 5 % (24-48) Monocytes (%) (Auto) 6 % (0-9) Eosinophils (%) (Auto) 1 % (0-3) Basophils (%) (Auto) 0 % (0-3) Neutrophils # (Auto) 8.4 x10^3/uL (1.8-7.7) Lymphocytes # (Auto) 0.5 x10^3/uL (1.0-4.8) Monocytes # (Auto) 0.5 x10^3/uL (0.0-1.1) Eosinophils # (Auto) 0.0 x10^3/uL (0.0-0.7) Basophils # (Auto) 0.0 x10^3/uL (0.0-0.2) Sodium Level 134 mmol/L (136-145) 135 mmol/L (136-145) Potassium Level 5.8 mmol/L (3.5-5.1) 6.0 mmol/L (3.5-5.1) Chloride Level 94 mmol/L (98-107) 94 mmol/L (98-107) Carbon Dioxide Level 17 mmol/L (21-32) 16 mmol/L (21-32) Anion Gap 23 (6-14) 25 (6-14) Blood Urea Nitrogen 232 mg/dL (8-26) 241 mg/dL (8-26) Creatinine 19.8 mg/dL (0.7-1.3) 19.7 mg/dL (0.7-1.3) Estimated GFR (Cockcroft-Gault) 3.0 3.0 BUN/Creatinine Ratio 12 (6-20) Glucose Level 136 mg/dL (70-99) 111 mg/dL (70-99) Lactic Acid Level 1.6 mmol/L (0.4-2.0) Calcium Level 9.4 mg/dL (8.5-10.1) 9.1 mg/dL (8.5-10.1) Total Bilirubin 0.5 mg/dL (0.2-1.0) Aspartate Amino Transf (AST/SGOT) 7 U/L (15-37) Alanine Aminotransferase (ALT/SGPT) 15 U/L (16-63) Alkaline Phosphatase 77 U/L (46-116) Total Protein 9.4 g/dL (6.4-8.2) Albumin 4.1 g/dL (3.4-5.0) Albumin/Globulin Ratio 0.8 (1.0-1.7) Influenza Type A Antigen Negative (NEGATIVE) Influenza Type B Antigen Negative (NEGATIVE) SARS-CoV-2 RNA (HUMBLE) Positive (Negative) SARS-CoV-2 Antigen (Rapid) Negative (NEGATIVE) Laboratory Tests Test 07/02/21 19:45 07/03/21 06:50 White Blood Count 9.5 x10^3/uL (4.0-11.0) Red Blood Count 4.47 x10^6/uL (4.30-5.70) Hemoglobin 14.5 g/dL (13.0-17.5) 13.3 g/dL (13.0-17.5) Hematocrit 40.9 % (39.0-53.0) 38.5 % (39.0-53.0) Mean Corpuscular Volume 91 fL (79-100) Mean Corpuscular Hemoglobin 32 pg (25-35) Mean Corpuscular Hemoglobin Concent 35 g/dL (31-37) Red Cell Distribution Width 14.2 % (11.5-14.5) Platelet Count 163 x10^3/uL (140-400) Neutrophils (%) (Auto) 88 % (31-73) Lymphocytes (%) (Auto) 5 % (24-48) Monocytes (%) (Auto) 6 % (0-9) Eosinophils (%) (Auto) 1 % (0-3) Basophils (%) (Auto) 0 % (0-3) Neutrophils # (Auto) 8.4 x10^3/uL (1.8-7.7) Lymphocytes # (Auto) 0.5 x10^3/uL (1.0-4.8) Monocytes # (Auto) 0.5 x10^3/uL (0.0-1.1) Eosinophils # (Auto) 0.0 x10^3/uL (0.0-0.7) Basophils # (Auto) 0.0 x10^3/uL (0.0-0.2) Sodium Level 134 mmol/L (136-145) 135 mmol/L (136-145) Potassium Level 5.8 mmol/L (3.5-5.1) 6.0 mmol/L (3.5-5.1) Chloride Level 94 mmol/L (98-107) 94 mmol/L (98-107) Carbon Dioxide Level 17 mmol/L (21-32) 16 mmol/L (21-32) Anion Gap 23 (6-14) 25 (6-14) Blood Urea Nitrogen 232 mg/dL (8-26) 241 mg/dL (8-26) Creatinine 19.8 mg/dL (0.7-1.3) 19.7 mg/dL (0.7-1.3) Estimated GFR (Cockcroft-Gault) 3.0 3.0 BUN/Creatinine Ratio 12 (6-20) Glucose Level 136 mg/dL (70-99) 111 mg/dL (70-99) Lactic Acid Level 1.6 mmol/L (0.4-2.0) Calcium Level 9.4 mg/dL (8.5-10.1) 9.1 mg/dL (8.5-10.1) Total Bilirubin 0.5 mg/dL (0.2-1.0) Aspartate Amino Transf (AST/SGOT) 7 U/L (15-37) Alanine Aminotransferase (ALT/SGPT) 15 U/L (16-63) Alkaline Phosphatase 77 U/L (46-116) Total Protein 9.4 g/dL (6.4-8.2) Albumin 4.1 g/dL (3.4-5.0) Albumin/Globulin Ratio 0.8 (1.0-1.7) Influenza Type A Antigen Negative (NEGATIVE) Influenza Type B Antigen Negative (NEGATIVE) SARS-CoV-2 RNA (HUMBLE) Positive (Negative) SARS-CoV-2 Antigen (Rapid) Negative (NEGATIVE) Images Images PATIENT: LITA PASTRANA ACCOUNT: [id number] : 1960 LOCATION: ER AGE: 61 SEX: M EXAM STATUS: REG ER ORD. PHYSICIAN: GAIL DAILEY REASON: fatigue PROCEDURE: CHEST AP ONLY EXAM: CHEST ONE VIEW. HISTORY: Fatigue. COMPARISON: 01/14/2021. FINDINGS: A frontal view of the chest is obtained. A right internal jugular hemodialysis catheter has its tip in the superior cavoatrial junction. There are no confluent infiltrates. There is no pneumothorax or pleural effusion. The heart is not enlarged. Hyperinflation suggests chronic obstructive pulmonary disease. IMPRESSION: 1. Chronic obstructive pulmonary disease. No confluent infiltrates. Electronically signed by: Abilio Doran MD (07/02/2021 7:28 PM) [facility] Assessment/Plan Assessment/Plan IMP UREMIC ENCEPHALOPATHY ESRD MWF-RIGHT IJ TDC HX HTN-LABILE NON COMPLIANCE DECONDITIONING COVID 19 POS HOMELESS PLAN ENC MED COMPLIANCE HOPEFULLY SW CAN ASSIST HD TODAY UF MINIMAL NEEDS CLEARANCE GUSTAVO WHEN NEEDED MART MILIAN MD Jul 03, 2021 15:25
--- NOTE | 2021-07-03 16:07 | EKG ---
[facility] [address] [place] [address] Test Date: 2021-07-02 Test Time: 20:18:30 Pat Name: LITA PASTRANA Department: Room: [facility] Gender: M Alternative Medicine Practitioner: [ : 1960 Requested By: GAIL DAILEY Order Number: [id number] Reading MD: Juwan Ardon Measurements Intervals [place] Rate: 90 P: -90 [place]: 174 QRS: 58 QRSD: 108 T: 98 QT: 368 QTc: 454 Interpretive Statements SINUS RHYTHM T ABNORMALITY IN ANTEROLATERAL LEADS Electronically Signed On 07-06-2021 16:47:40 NOTEREADER by Juwan Ardon
[2021-07-03 19:00] VITALS: BP 127/96
[2021-07-03] MEDS: SENNOSIDES/DOCUSATE 8.6/50MG TABLET. PO SCH (20:06)
[2021-07-03] MEDS: HEPARIN for SUB-Q USE 5,000 UNIT/ML VIAL. SQ SCH (20:10)
[2021-07-03 23:00] VITALS: BP 127/94
[2021-07-04 03:00] VITALS: BP 125/90
[2021-07-04 07:00] VITALS: BP 130/88
[2021-07-04] MEDS: ISOSORBIDE MONONITRATE 20 MG TABLET PO SCH ×2 (09:43→14:00)
[2021-07-04] MEDS: SENNOSIDES/DOCUSATE 8.6/50MG TABLET. PO SCH ×2 (09:43→21:28)
[2021-07-04] MEDS: FOLIC ACID 1 MG TABLET. PO SCH (09:43)
[2021-07-04] MEDS: THIAMINE 100 MG TABLET. PO SCH (09:43)
[2021-07-04] MEDS: ASPIRIN ENTERIC COATED 81 MG TABLET.DR. PO SCH (09:43)
[2021-07-04] MEDS: CARVEDILOL 12.5 MG TABLET. PO SCH ×2 (09:44→17:46)
[2021-07-04] MEDS: HEPARIN for SUB-Q USE 5,000 UNIT/ML VIAL. SQ SCH ×2 (09:47→21:28)
[2021-07-04] MEDS ORDERED: IV NORMAL SALINE 1000ML BAG 1,000 ML IV PRN ×2 (10:30)
[2021-07-04] MEDS ORDERED: DIALYSIS PATIENT. MC PRN (10:30)
[2021-07-04 11:00] VITALS: BP 119/86
[2021-07-04 11:28] LABS: CALCIUM 8.5 mg/dL (8.5-10.1); CREATININE 12.4 mg/dL (0.7-1.3); GFR 5.1; POTASSIUM 4.5 mmol/L (3.5-5.1)
[2021-07-04 11:31] LABS: PHOSPHORUS 9.5 mg/dL (2.6-4.7)
--- NOTE | 2021-07-04 11:43 | PDOC ---
Renal-Progress Notes Subjective Notes Notes NO NEW COMPLAINTS, STILL SLEEPY History of Present Illness Hx of present illness NO ACUTE CHANGES Vitals Vitals Vital Signs Date Time Temp Pulse Resp B/P (MAP) Pulse Ox O2 Delivery O2 Flow Rate FiO2 07/04/21 11:00 97.7 88 20 119/86 (97) 99 Room Air 97.7 Weight Weight [ ] I.O. Intake and Output Intake and Output 07/04/21 07:00 Intake Total 220 ml Output Total 250 ml Balance -30 ml Intake Oral 220 ml Output Emesis 250 ml Labs Labs Laboratory Tests Test 07/04/21 10:31 Sodium Level 138 mmol/L (136-145) Potassium Level 4.5 mmol/L (3.5-5.1) Chloride Level 97 mmol/L (98-107) Carbon Dioxide Level 27 mmol/L (21-32) Anion Gap 14 (6-14) Blood Urea Nitrogen 109 mg/dL (8-26) Creatinine 12.4 mg/dL (0.7-1.3) Estimated GFR (Cockcroft-Gault) 5.1 Glucose Level 110 mg/dL (70-99) Calcium Level 8.5 mg/dL (8.5-10.1) Phosphorus Level 9.5 mg/dL (2.6-4.7) Micro Micro Microbiology 07/02/21 Blood Culture - Preliminary, Resulted NO GROWTH AFTER 1 DAY Review of Systems Constitutional: yes: malaise, weakness, alert Ears/Nose/Throat: Yes: no symptom reported Eyes: Yes: no symptom reported Pulmonary: Yes no symptom reported Cardiovascular: Yes no symptom reported Gastrointestional: Yes: nausea, other (NO APPETITE) Genitourinary: Yes: no symptom reported Musculoskeletal: Yes: muscle stiffness Skin: Yes no symptom reported Psychiatric/Neurological: Yes: no symptom reported Endocrine: Yes: no symptom reported Physical Exam General Appearance: no apparent distress Skin: warm Respiratory: bilateral CTA Heart: S1S2 Abdomen: soft, bowel sounds present Genitourinary: bladder flat Extremities: pulses present, atrophy Neurology: alert Assessment Assessment IMP UREMIC ENCEPHALOPATHY ESRD TTS-RIGHT IJ TDC HX HTN-LABILE NON COMPLIANCE DECONDITIONING COVID 19 POS HOMELESS PLAN ENC MED COMPLIANCE HOPEFULLY SW CAN ASSIST HD TODAY UF MINIMAL NEEDS CLEARANCE GUSTAVO WHEN NEEDED MART MILIAN MD Jul 04, 2021 11:43
--- NOTE | 2021-07-04 11:57 | NUR ---
SW following. Discussed with RN, pt currently homeless, room air, renal diet. Does dialysis at [facility]. TIMOTHY spoke with Isaias Keller at [facility] - pt is able to return to that location as per Isaias he tested positive on 06/17/21 so is past the 10 days. Isaias reported pt has not been to dialysis since 06/07/21 so they would like to know if he plans to return. TIMOTHY will continue to follow.
--- NOTE | 2021-07-04 12:48 | PDOC ---
[employer] PROGRESS NOTE Date of Service DOS: DATE: 07/04/21 TIME: 12:47 Chief Complaint Chief Complaint Fatigue secondary to COVID-19 and missed dialysis sessions, uremia. History hypertension hyperlipidemia stroke -Presented with worsening fatigue and weakness. Last several sessions of dialysis missed -Nephro consult to resume dialysis; notably uremic on labs -COVID-19 positive. Really no respiratory symptoms evaluated. Should he develop any respiratory symptoms we will add on steroids -DVT prophylaxis -Resume home meds as indicated -May need PAT consult History of Present Illness History of Present Illness 07/04 Patient seen and examined at bedside. Still pretty lethargic and weak. Tolerated dialysis yesterday. Dialyzing again today per nephro. Labs improved with first session. Will evaluate again after dialysis today. Vitals/I&O Vitals/I&O: Vital Signs Date Time Temp Pulse Resp B/P (MAP) Pulse Ox O2 Delivery O2 Flow Rate FiO2 07/04/21 11:00 97.7 88 20 119/86 (97) 99 Room Air 97.7 I & O 07/03/21 07/03/21 07/04/21 15:00 23:00 07:00 Intake Total 0 ml 220 ml Output Total 250 ml Balance 0 ml -30 ml Physical Exam General: Alert, Cooperative, No acute distress Heart: Regular rate Lungs: Clear Abdomen: Normal bowel sounds, Soft, No tenderness Extremities: Normal pulses Skin: No rashes, No significant lesion Labs Labs: Laboratory Tests Test 07/04/21 10:31 Sodium Level 138 mmol/L (136-145) Potassium Level 4.5 mmol/L (3.5-5.1) Chloride Level 97 mmol/L (98-107) Carbon Dioxide Level 27 mmol/L (21-32) Anion Gap 14 (6-14) Blood Urea Nitrogen 109 mg/dL (8-26) Creatinine 12.4 mg/dL (0.7-1.3) Estimated GFR (Cockcroft-Gault) 5.1 Glucose Level 110 mg/dL (70-99) Calcium Level 8.5 mg/dL (8.5-10.1) Phosphorus Level 9.5 mg/dL (2.6-4.7) Assessment and Plan Assessmemt and Plan Problems Medical Problems: (1) Hyperkalemia Status: Acute Comment Review of Relevant I have reviewed the following items reid (where applicable) has been applied. Medications: Current Medications Medications (Trade) Dose Ordered Sig/Remi Route PRN Reason Start Time Stop Time Status Last Admin Dose Admin Isosorbide Mononitrate (Ismo) 20 mg BID92 PO 07/03/21 14:00 07/04/21 09:43 Senna/Docusate Sodium (Senna Plus) 1 tab BID PO 07/03/21 21:00 07/04/21 09:43 Heparin Sodium (Porcine) (Heparin Sodium) 5,000 unit Q12HR SQ 07/03/21 21:00 07/04/21 09:47 Justifications for Admission Other Justification ARLEN RODRÍGUEZ MD Jul 04, 2021 12:48
[2021-07-04 16:47] VITALS: BP 119/87
[2021-07-04 19:00] VITALS: BP 106/80
[2021-07-04 23:00] VITALS: BP 104/73
[2021-07-05 03:00] VITALS: BP 111/82
[2021-07-05 07:00] VITALS: BP 107/81
--- NOTE | 2021-07-05 07:20 | NUR ---
RN spoke with patients Joyce who stated she was worried about the patients acute changes in behaviors since being diagnosed with Covid and being at [facility]. She states he has not communicated with family like he used to and she questioned whether this new behavior may be related to his covid diagnosis or not.
[2021-07-05] MEDS: CARVEDILOL 12.5 MG TABLET. PO SCH ×2 (08:00→16:59)
[2021-07-05 08:21] LABS: CALCIUM 8.2 mg/dL (8.5-10.1); CREATININE 7.9 mg/dL (0.7-1.3); GFR 8.5; POTASSIUM 3.8 mmol/L (3.5-5.1)
[2021-07-05] MEDS: ASPIRIN ENTERIC COATED 81 MG TABLET.DR. PO SCH (08:40)
[2021-07-05] MEDS: THIAMINE 100 MG TABLET. PO SCH (08:40)
[2021-07-05] MEDS: ISOSORBIDE MONONITRATE 20 MG TABLET PO SCH ×2 (08:41→13:29)
[2021-07-05] MEDS: SENNOSIDES/DOCUSATE 8.6/50MG TABLET. PO SCH ×3 (08:41→22:07)
[2021-07-05] MEDS: FOLIC ACID 1 MG TABLET. PO SCH (08:41)
[2021-07-05] MEDS: HEPARIN for SUB-Q USE 5,000 UNIT/ML VIAL. SQ SCH ×3 (08:47→22:08)
--- NOTE | 2021-07-05 10:55 | PDOC ---
Renal-Progress Notes Subjective Notes Notes STILL HAS CONFUSION History of Present Illness Hx of present illness NO ACUTE CHANGES Vitals Vitals Vital Signs Date Time Temp Pulse Resp B/P (MAP) Pulse Ox O2 Delivery O2 Flow Rate FiO2 07/05/21 08:47 63 107/82 07/05/21 08:00 Room Air 07/05/21 07:00 97.3 16 97 97.3 Weight Weight [ ] I.O. Intake and Output Intake and Output 07/05/21 07:00 Intake Total 480 ml Output Total 900 ml Balance -420 ml Intake Oral 480 ml Output Emesis 900 ml Labs Labs Laboratory Tests Test 07/05/21 07:15 Sodium Level 138 mmol/L (136-145) Potassium Level 3.8 mmol/L (3.5-5.1) Chloride Level 101 mmol/L (98-107) Carbon Dioxide Level 25 mmol/L (21-32) Anion Gap 12 (6-14) Blood Urea Nitrogen 50 mg/dL (8-26) Creatinine 7.9 mg/dL (0.7-1.3) Estimated GFR (Cockcroft-Gault) 8.5 Glucose Level 83 mg/dL (70-99) Calcium Level 8.2 mg/dL (8.5-10.1) Micro Micro Microbiology 07/02/21 Blood Culture - Preliminary, Resulted NO GROWTH AFTER 2 DAYS Review of Systems Constitutional: yes: malaise, weakness, alert Ears/Nose/Throat: Yes: no symptom reported Eyes: Yes: no symptom reported Pulmonary: Yes no symptom reported Cardiovascular: Yes no symptom reported Gastrointestional: Yes: nausea, other (NO APPETITE) Genitourinary: Yes: no symptom reported Musculoskeletal: Yes: muscle stiffness Skin: Yes no symptom reported Psychiatric/Neurological: Yes: no symptom reported Endocrine: Yes: no symptom reported Physical Exam General Appearance: no apparent distress Skin: warm Respiratory: bilateral CTA Heart: S1S2 Abdomen: soft, bowel sounds present Genitourinary: bladder flat Extremities: pulses present, atrophy Neurology: alert Assessment Assessment IMP UREMIC ENCEPHALOPATHY ESRD TTS-RIGHT IJ TDC HX HTN-LABILE NON COMPLIANCE DECONDITIONING COVID 19 POS HOMELESS PLAN ENC MED COMPLIANCE NEEDS ASSISTANCE WITH LIVING SITUATION HD TODAY UF MINIMAL NEEDS CLEARANCE GUSTAVO WHEN NEEDED MART MILIAN MD Jul 05, 2021 10:55
[2021-07-05 11:00] VITALS: BP 114/80
[2021-07-05] MEDS ORDERED: IV NORMAL SALINE 1000ML BAG 1,000 ML IV PRN ×2 (11:45)
[2021-07-05] MEDS ORDERED: DIALYSIS PATIENT. MC PRN ×2 (11:45)
[2021-07-05] MEDS ORDERED: 0.9 % SODIUM CHLORIDE 10 ML DISP.SYRIN. IV PRN ×2 (11:45)
[2021-07-05 15:00] VITALS: BP 124/82
--- NOTE | 2021-07-05 17:47 | PDOC ---
[employer] PROGRESS NOTE Date of Service DOS: DATE: 07/05/21 TIME: 17:46 Chief Complaint Chief Complaint Fatigue secondary to COVID-19 and missed dialysis sessions, uremia. History hypertension hyperlipidemia stroke -Presented with worsening fatigue and weakness. Last several sessions of dialysis missed -Nephro consult to resume dialysis; notably uremic on labs -COVID-19 positive. Really no respiratory symptoms evaluated. Should he develop any respiratory symptoms we will add on steroids -DVT prophylaxis -Resume home meds as indicated -May need PAT consult History of Present Illness History of Present Illness 07/05 Patient evaluated examined at bedside. Somewhat altered still. Undergoing dialysis today. Difficult social situation and working on finding placement. Likely here through the weekend. 07/04 Patient seen and examined at bedside. Still pretty lethargic and weak. Tolerated dialysis yesterday. Dialyzing again today per nephro. Labs improved with first session. Will evaluate again after dialysis today. Vitals/I&O Vitals/I&O: Vital Signs Date Time Temp Pulse Resp B/P (MAP) Pulse Ox O2 Delivery O2 Flow Rate FiO2 07/05/21 11:00 97.6 68 18 114/80 (91) 100 Room Air 97.6 I & O 07/04/21 07/04/21 07/05/21 15:00 23:00 07:00 Intake Total 0 ml 360 ml 120 ml Output Total 700 ml 200 ml Balance -700 ml 160 ml 120 ml Physical Exam General: Alert, Cooperative, No acute distress Heart: Regular rate Lungs: Clear Abdomen: Normal bowel sounds, Soft, No tenderness Extremities: Normal pulses Skin: No rashes, No significant lesion Labs Labs: Laboratory Tests Test 07/05/21 07:15 Sodium Level 138 mmol/L (136-145) Potassium Level 3.8 mmol/L (3.5-5.1) Chloride Level 101 mmol/L (98-107) Carbon Dioxide Level 25 mmol/L (21-32) Anion Gap 12 (6-14) Blood Urea Nitrogen 50 mg/dL (8-26) Creatinine 7.9 mg/dL (0.7-1.3) Estimated GFR (Cockcroft-Gault) 8.5 Glucose Level 83 mg/dL (70-99) Calcium Level 8.2 mg/dL (8.5-10.1) Assessment and Plan Assessmemt and Plan Problems Medical Problems: (1) Hyperkalemia Status: Acute Comment Review of Relevant I have reviewed the following items reid (where applicable) has been applied. Justifications for Admission Other Justification ARLEN RODRÍGUEZ MD Jul 05, 2021 17:47
[2021-07-05 19:00] VITALS: BP 110/78
[2021-07-05 22:30] VITALS: BP 104/73
[2021-07-06 03:00] VITALS: BP 122/92
[2021-07-06 07:00] VITALS: BP 132/87
[2021-07-06] MEDS: HEPARIN for SUB-Q USE 5,000 UNIT/ML VIAL. SQ SCH ×2 (07:08→20:27)
[2021-07-06] MEDS: SENNOSIDES/DOCUSATE 8.6/50MG TABLET. PO SCH ×2 (08:21→20:23)
[2021-07-06] MEDS: FOLIC ACID 1 MG TABLET. PO SCH (08:21)
[2021-07-06] MEDS: CARVEDILOL 12.5 MG TABLET. PO SCH ×2 (08:21→13:53)
[2021-07-06] MEDS: THIAMINE 100 MG TABLET. PO SCH (08:21)
[2021-07-06] MEDS: ISOSORBIDE MONONITRATE 20 MG TABLET PO SCH ×4 (08:22→11:22)
[2021-07-06] MEDS: ASPIRIN ENTERIC COATED 81 MG TABLET.DR. PO SCH (08:22)
[2021-07-06 11:00] VITALS: BP 97/66
[2021-07-06] MEDS ORDERED: DIALYSIS PATIENT. MC PRN ×2 (14:00)
[2021-07-06] MEDS ORDERED: IV NORMAL SALINE 1000ML BAG 1,000 ML IV PRN ×2 (14:00)
[2021-07-06] MEDS ORDERED: ALBUMIN HUMAN 25% 200 ML IV PRN (14:00)
[2021-07-06] MEDS ORDERED: 0.9 % SODIUM CHLORIDE 10 ML DISP.SYRIN. IV PRN ×2 (14:00)
--- NOTE | 2021-07-06 14:02 | PDOC ---
PROGRESS NOTES Date of Service DATE: 07/06/21 TIME: 14:01 Subjective Subjective IN FOLLOW UP FOR ESRD Objective Objective Vital Signs Date Time Temp Pulse Resp B/P (MAP) Pulse Ox O2 Delivery O2 Flow Rate FiO2 07/06/21 11:00 98.2 66 16 97/66 (76) 99 Room Air 98.2 Intake and Output 07/06/21 07:00 Output Total 0 ml Balance 0 ml Output Urine Total 0 ml # Bowel Movements 1 Physical Exam COMMENT NO BEDSIDE EXAM DUE TO COVID 19+ Diagnosis RENAL FAILURE: ESRD Assessment Assessment Problems Medical Problems: (1) Hyperkalemia Status: Acute Plan Plan of Care FOR DIALYSIS TODAY. CONT RX FOR COVID 19 Comment Review of Relevant I have reviewed the following items reid (where applicable) has been applied. Labs Laboratory Tests Test 07/05/21 07:15 Sodium Level 138 mmol/L (136-145) Potassium Level 3.8 mmol/L (3.5-5.1) Chloride Level 101 mmol/L (98-107) Carbon Dioxide Level 25 mmol/L (21-32) Anion Gap 12 (6-14) Blood Urea Nitrogen 50 mg/dL (8-26) Creatinine 7.9 mg/dL (0.7-1.3) Estimated GFR (Cockcroft-Gault) 8.5 Glucose Level 83 mg/dL (70-99) Calcium Level 8.2 mg/dL (8.5-10.1) Microbiology 07/02/21 Blood Culture - Preliminary, Resulted NO GROWTH AFTER 3 DAYS Medications Current Medications Sodium Polystyrene Sulfonate (Kayexalate) 30 gm 1X ONCE PO Last administered on 07/03/21at 00:17; Start 07/02/21 at 21:45; Stop 07/02/21 at 21:46; Status DC Ondansetron HCl (Zofran) 4 mg PRN Q8HRS PRN IVP NAUSEA/VOMITING Last administered on 07/03/21at 01:32; Start 07/03/21 at 00:00; Stop 07/03/21 at 12:33; Status DC Morphine Sulfate (Morphine Sulfate) 2 mg PRN Q2HR PRN IVP PAIN; Start 07/03/21 at 00:00; Stop 07/03/21 at 23:59; Status DC Pantoprazole Sodium (PROTONIX VIAL for IV PUSH) 40 mg 1X ONCE IVP Last administered on 07/03/21at 01:32; Start 07/03/21 at 00:45; Stop 07/03/21 at 00:46; Status DC Amlodipine Besylate (Norvasc) 5 mg DAILY PO Last administered on 07/04/21at 09:44; Start 07/03/21 at 12:00 Aspirin (Ecotrin) 81 mg DAILYWBKFT PO Last administered on 07/06/21at 08:22; Start 07/03/21 at 12:00 Carvedilol (Coreg) 12.5 mg BIDWMEALS PO Last administered on 07/06/21at 08:21; Start 07/03/21 at 12:00 Isosorbide Mononitrate (Ismo) 20 mg BID92 PO Last administered on 07/05/21at 08:41; Start 07/03/21 at 14:00 Thiamine Mononitrate (Vitamin B-1) 100 mg DAILY PO Last administered on 07/06/21at 08:21; Start 07/03/21 at 12:00 Folic Acid (Folic Acid) 1 mg DAILY PO Last administered on 07/06/21at 08:21; Start 07/03/21 at 12:00 Ondansetron HCl (Zofran) 4 mg PRN Q6HRS PRN IVP NAUSEA/VOMITING; Start 07/03/21 at 11:00 Calcium Carbonate/ Glycine (Tums) 500 mg PRN Q3HRS PRN PO UPSET STOMACH; Start 07/03/21 at 11:00 Zolpidem Tartrate (Ambien) 5 mg PRN QHS PRN PO INSOMNIA, MAY REPEAT IN 1HR; Start 07/03/21 at 11:00 Info (Non-Icu Electrolyte Protocol) 1 ea PRN DAILY PRN MC SEE COMMENTS; Start 07/03/21 at 11:00 Oxycodone/ Acetaminophen (Percocet 5/325) 1 tab PRN Q4HRS PRN PO MILD PAIN, 1ST CHOICE; Start 07/03/21 at 11:00 Oxycodone/ Acetaminophen (Percocet 5/325) 2 tab PRN Q4HRS PRN PO MODERATE PAIN, SEVERE PAIN; Start 07/03/21 at 11:00 Acetaminophen (Tylenol) 650 mg PRN Q6HRS PRN PO Headaches, Temp > 101.5F; Start 07/03/21 at 11:00 Senna/Docusate Sodium (Senna Plus) 1 tab BID PO Last administered on 07/06/21at 08:21; Start 07/03/21 at 21:00 Heparin Sodium (Porcine) (Heparin Sodium) 5,000 unit Q12HR SQ Last administered on 07/04/21at 21:28; Start 07/03/21 at 21:00 Sodium Chloride 1,000 ml @ 1,000 mls/hr Q1H PRN IV hypotension; Start 07/03/21 at 13:00; Stop 07/03/21 at 18:59; Status DC Albumin Human 200 ml @ 200 mls/hr 1X PRN PRN IV Hypotension; Start 07/03/21 at 13:00; Stop 07/03/21 at 18:59; Status DC Sodium Chloride 1,000 ml @ 400 mls/hr Q2H30M PRN IV PATENCY; Start 07/03/21 at 13:00; Stop 07/04/21 at 00:59; Status DC Info (PHARMACY MONITORING -- do not chart) 1 each PRN DAILY PRN MC SEE COMMENTS; Start 07/03/21 at 13:00; Status Cancel Sodium Chloride 1,000 ml @ 1,000 mls/hr Q1H PRN IV hypotension; Start 07/04/21 at 10:30; Stop 07/04/21 at 16:29; Status DC Sodium Chloride 1,000 ml @ 400 mls/hr Q2H30M PRN IV PATENCY; Start 07/04/21 at 10:30; Stop 07/04/21 at 22:29; Status DC Info (PHARMACY MONITORING -- do not chart) 1 each PRN DAILY PRN MC SEE COM MENTS; Start 07/04/21 at 10:30 Sodium Chloride 1,000 ml @ 1,000 mls/hr Q1H PRN IV hypotension; Start 07/05/21 at 11:45; Stop 07/05/21 at 17:44; Status DC Sodium Chloride (Normal Saline Flush) 10 ml 1X PRN PRN IV AP catheter pack; Start 07/05/21 at 11:45; Stop 07/05/21 at 19:00; Status DC Sodium Chloride (Normal Saline Flush) 10 ml 1X PRN PRN IV EX ASSISTANT/PROGRAM DIRECTOR catheter pack; Start 07/05/21 at 11:45; Stop 07/05/21 at 19:00; Status DC Sodium Chloride 1,000 ml @ 400 mls/hr Q2H30M PRN IV PATENCY; Start 07/05/21 at 11:45; Stop 07/05/21 at 23:44; Status DC Info (PHARMACY MONITORING -- do not chart) 1 each PRN DAILY PRN MC SEE COMMENTS; Start 07/05/21 at 11:45; Status UNV Info (PHARMACY MONITORING -- do not chart) 1 each PRN DAILY PRN MC SEE COMMENTS; Start 07/05/21 at 11:45; Status UNV Sodium Chloride 1,000 ml @ 1,000 mls/hr Q1H PRN IV hypotension; Start 07/06/21 at 14:00; Stop 07/06/21 at 19:59 Albumin Human 200 ml @ 200 mls/hr 1X PRN PRN IV Hypotension; Start 07/06/21 at 14:00; Stop 07/06/21 at 19:59 Sodium Chloride (Normal Saline Flush) 10 ml 1X PRN PRN IV AP catheter pack; Start 07/06/21 at 14:00; Stop 07/07/21 at 13:59 Sodium Chloride (Normal Saline Flush) 10 ml 1X PRN PRN IV EX ASSISTANT/PROGRAM DIRECTOR catheter pack; Start 07/06/21 at 14:00; Stop 07/07/21 at 13:59 Sodium Chloride 1,000 ml @ 400 mls/hr Q2H30M PRN IV PATENCY; Start 07/06/21 at 14:00; Stop 07/07/21 at 01:59 Info (PHARMACY MONITORING -- do not chart) 1 each PRN DAILY PRN MC SEE COMMENTS; Start 07/06/21 at 14:00 Info (PHARMACY MONITORING -- do not chart) 1 each PRN DAILY PRN MC SEE COMMENTS; Start 07/06/21 at 14:00 Active Scripts Active Isosorbide Mononitrate 20 Mg Tablet 20 Mg PO BID92 30 Days Aspirin Ec (Aspirin) 81 Mg Tablet. 81 Mg PO DAILYWBKFT 30 Days Amlodipine Besylate 5 Mg Tablet 5 Mg PO DAILY 30 Days Carvedilol (Carvedilol) 12.5 Mg Tablet 12.5 Mg PO BIDWMEALS 30 Days Hydralazine Hcl 50 Mg Tablet 100 Mg PO BID 30 Days Vitamin B-1 (Thiamine Mononitrate) 100 Mg Tablet 100 Mg PO DAILY 30 Days [Folic Acid] 1 MG Tablet 1 Mg PO DAILY 30 Days Vitals/I & O Vital Sign - Last 24 Hours 07/05/21 07/05/21 07/05/21 07/05/21 15:00 19:00 20:15 22:30 Temp 97.7 98.1 98.2 97.7 98.1 98.2 Pulse 65 63 68 Resp 18 20 20 B/P (MAP) 124/82 (96) 110/78 (89) 104/73 (83) Pulse Ox 100 97 99 O2 Delivery Room Air Room Air Room Air Room Air 07/06/21 07/06/21 07/06/21 07/06/21 03:00 07:00 08:00 08:21 Temp 98.1 97.4 98.1 97.4 Pulse 60 64 64 Resp 16 16 B/P (MAP) 122/92 (102) 132/87 (102) 132/87 Pulse Ox 96 97 O2 Delivery Room Air Room Air Room Air 07/06/21 11:00 Temp 98.2 98.2 Pulse 66 Resp 16 B/P (MAP) 97/66 (76) Pulse Ox 99 O2 Delivery Room Air Intake and Output 07/05/21 07/05/21 07/06/21 15:00 23:00 07:00 Output Total 0 ml 0 ml Balance 0 ml 0 ml Justifications for Admission Other Justification ABILIO PARKER MD Jul 06, 2021 14:02
--- NOTE | 2021-07-06 15:39 | PDOC ---
[employer] [facility] PROGRESS NOTE Date of Service DOS: DATE: 07/06/21 TIME: 15:38 Chief Complaint Chief Complaint Fatigue secondary to COVID-19 and missed dialysis sessions, uremia. History hypertension hyperlipidemia stroke -Presented with worsening fatigue and weakness. Last several sessions of dialysis missed -Nephro consult to resume dialysis; notably uremic on labs -COVID-19 positive. Really no respiratory symptoms evaluated. Should he develop any respiratory symptoms we will add on steroids -DVT prophylaxis -Resume home meds as indicated -May need PAT consult History of Present Illness History of Present Illness 07/06 Patient eval and examined at bedside. Dialysis agin today ordered. Will be difficult placement. Otherwise continue covid treament. Plan discussed with bedside rn. 07/05 Patient evaluated examined at bedside. Somewhat altered still. Undergoing dialysis today. Difficult social situation and working on finding placement. Likely here through the weekend. 07/04 Patient seen and examined at bedside. Still pretty lethargic and weak. Tolerated dialysis yesterday. Dialyzing again today per nephro. Labs improved with first session. Will evaluate again after dialysis today. Vitals/I&O Vitals/I&O: Vital Signs Date Time Temp Pulse Resp B/P (MAP) Pulse Ox O2 Delivery O2 Flow Rate FiO2 07/06/21 11:00 98.2 66 16 97/66 (76) 99 Room Air 98.2 l I & O 07/05/21 07/05/21 07/06/21 15:00 23:00 07:00 Output Total 0 ml 0 ml Balance 0 ml 0 ml Physical Exam General: Alert, Cooperative, No acute distress Heart: Regular rate Lungs: Clear Abdomen: Normal bowel sounds, Soft, No tenderness Extremities: Normal pulses Skin: No rashes, No significant lesion Assessment and Plan Assessmemt and Plan Problems Medical Problems: (1) Hyperkalemia Status: Acute Comment Review of Relevant I have reviewed the following items reid (where applicable) has been applied. Justifications for Admission Other Justification ARLEN RODRÍGUEZ MD Jul 06, 2021 15:38
[2021-07-06 19:00] VITALS: BP 120/89
[2021-07-06 23:00] VITALS: BP 117/84
[2021-07-07 03:00] VITALS: BP 115/87
[2021-07-07 07:00] VITALS: BP 106/76
[2021-07-07] MEDS: THIAMINE 100 MG TABLET. PO SCH (08:16)
[2021-07-07] MEDS: ASPIRIN ENTERIC COATED 81 MG TABLET.DR. PO SCH (08:16)
[2021-07-07] MEDS: FOLIC ACID 1 MG TABLET. PO SCH (08:16)
[2021-07-07] MEDS: SENNOSIDES/DOCUSATE 8.6/50MG TABLET. PO SCH ×2 (08:16→21:00)
[2021-07-07] MEDS: HEPARIN for SUB-Q USE 5,000 UNIT/ML VIAL. SQ SCH ×2 (09:00→21:00)
[2021-07-07] MEDS: CARVEDILOL 12.5 MG TABLET. PO SCH ×2 (09:16→17:09)
[2021-07-07] MEDS: ISOSORBIDE MONONITRATE 20 MG TABLET PO SCH ×2 (09:16→14:50)
[2021-07-07 10:49] VITALS: BP 96/74
[2021-07-07 15:30] VITALS: BP 99/68
[2021-07-07 19:00] VITALS: BP 109/76
[2021-07-07 23:00] VITALS: BP 108/77
--- NOTE | 2021-07-08 02:00 | NUR ---
Pts telemetry monitoring discontinued per protocol.
[2021-07-08 02:45] VITALS: BP 110/74
[2021-07-08 07:00] VITALS: BP 98/78
[2021-07-08] MEDS: SENNOSIDES/DOCUSATE 8.6/50MG TABLET. PO SCH (08:31)
[2021-07-08] MEDS: THIAMINE 100 MG TABLET. PO SCH (08:31)
[2021-07-08] MEDS: ISOSORBIDE MONONITRATE 20 MG TABLET PO SCH ×2 (08:31→14:00)
[2021-07-08] MEDS: HEPARIN for SUB-Q USE 5,000 UNIT/ML VIAL. SQ SCH (08:31)
[2021-07-08] MEDS: FOLIC ACID 1 MG TABLET. PO SCH (08:31)
[2021-07-08] MEDS: ASPIRIN ENTERIC COATED 81 MG TABLET.DR. PO SCH (08:31)
[2021-07-08 11:00] VITALS: BP 103/72
[2021-07-08 11:36] VITALS: BP 103/72
[2021-07-08] MEDS: CARVEDILOL 12.5 MG TABLET. PO SCH (11:36)
--- NOTE | 2021-07-08 11:48 | PDOC ---
DATE OF SERVICE DATE: 07/08/21 TIME: 11:48 SUBJECTIVE ROS Stable OBJECTIVE Vital Signs Vital Signs Date Time Temp Pulse Resp B/P (MAP) Pulse Ox O2 Delivery O2 Flow Rate FiO2 07/08/21 11:36 74 103/72 07/08/21 08:00 Room Air 07/08/21 07:00 97.3 20 99 97.3 I & 0 Intake and Output 07/08/21 06:59 Intake Total 1000 ml Output Total 50 ml Balance 950 ml Intake Oral 1000 ml Output Urine Total 50 ml # Voids 1 # Bowel Movements 1 PHYSICAL EXAM Physical Exam GEN: Awake, Oriented x 3, In no distress EYES: Vision Unchanged, Conjunctiva Normal EN: No EN Drainage, Mucous Membranes moist NECK: no JVD, no JVP, Supple, no Thyromegaly CVS: S1S2, no Murmur, No Gallop, No Rub,no Edema RESP: no Rales, no Rhonchi,no Acc. Muscle Use GI: BS + ve, NO Bruit, Non Tender, Non Distended : no CVA tenderness, no Suprapubic Tenderness DIAGNOSIS/ASSESSMENT Assessment & Plan ESRD - on HD TTS , currently No indication for dialysis today Access- -RIGHT IJ TDC HTN-Labile, BP Low COVID 19 Positive - On RA Homeless COMMENT/RELEVANT DATA Meds Current Medications Medications (Trade) Dose Ordered Sig/Remi Start Time Stop Time Status Last Admin Dose Admin Acetaminophen (Tylenol) 650 mg PRN Q6HRS PRN 07/03/21 11:00 Albumin Human 200 ml @ 200 mls/hr 1X PRN PRN 07/06/21 14:00 07/06/21 19:59 DC Amlodipine Besylate (Norvasc) 5 mg DAILY 07/03/21 12:00 07/08/21 11:35 5 MG Aspirin (Ecotrin) 81 mg DAILYWBKFT 07/03/21 12:00 07/08/21 08:31 81 MG Calcium Carbonate/ Glycine (Tums) 500 mg PRN Q3HRS PRN 07/03/21 11:00 Carvedilol (Coreg) 12.5 mg BIDWMEALS 07/03/21 12:00 07/08/21 11:36 12.5 MG Folic Acid (Folic Acid) 1 mg DAILY 07/03/21 12:00 07/08/21 08:31 1 MG Heparin Sodium (Porcine) (Heparin Sodium) 5,000 unit Q12HR 07/03/21 21:00 07/04/21 21:28 5,000 UNIT Info (Non-Icu Electrolyte Protocol) 1 ea PRN DAILY PRN 07/03/21 11:00 Info (PHARMACY MONITORING -- do not chart) 1 each PRN DAILY PRN 07/06/21 14:00 Isosorbide Mononitrate (Ismo) 20 mg BID92 07/03/21 14:00 07/08/21 08:31 20 MG Morphine Sulfate (Morphine Sulfate) 2 mg PRN Q2HR PRN 07/03/21 00:00 07/03/21 23:59 DC Ondansetron HCl (Zofran) 4 mg PRN Q6HRS PRN 07/03/21 11:00 Oxycodone/ Acetaminophen (Percocet 5/325) 2 tab PRN Q4HRS PRN 07/03/21 11:00 Pantoprazole Sodium (PROTONIX VIAL for IV PUSH) 40 mg 1X ONCE 07/03/21 00:45 07/03/21 00:46 DC 07/03/21 01:32 40 MG Senna/Docusate Sodium (Senna Plus) 1 tab BID 07/03/21 21:00 07/08/21 08:31 1 TAB Sodium Polystyrene Sulfonate (Kayexalate) 30 gm 1X ONCE 07/02/21 21:45 07/02/21 21:46 DC 07/03/21 00:17 30 GM Sodium Chloride 1,000 ml @ 400 mls/hr Q2H30M PRN 07/06/21 14:00 07/07/21 01:59 DC Sodium Chloride (Normal Saline Flush) 10 ml 1X PRN PRN 07/06/21 14:00 07/07/21 13:59 DC Thiamine Mononitrate (Vitamin B-1) 100 mg DAILY 07/03/21 12:00 07/08/21 08:31 100 MG Zolpidem Tartrate (Ambien) 5 mg PRN QHS PRN 07/03/21 11:00 Results All relevant outside records, renal labs, imaging studies, telemetry/EKG's were reviewed. Justicifation of Admission Dx: Justifications for Admission: Justification of Admission Dx: Yes Acute Renal Failure: RF Can't Be Managed Outpt LISANDRO JOSEPH MD Jul 08, 2021 11:48
--- NOTE | 2021-07-08 12:00 | SNU/HH DC ---
DISCHARGE WITH HOME HEALTH DISCHARGE INFORMATION: Discharge Date: Jul 08, 2021 Final Diagnosis: Problems Medical Problems: (1) Hyperkalemia Status: Acute Condition on Discharge: Stable CODE STATUS: Code Status: Full HOME HEALTH: Face to Face: I certify this patient is under my care and that I, or a nurse practitioner or physician's facility assistant working with me, had a face to face encounter that meets the physician face to face encounter requirements with this patient on []. RN For Eval/Treatment: Yes Physical Therapy For: Evalulation/Treatment Occupational Therapy For: Evaluation/Treatment Pt Meets Homebound Status: Unsteady balance w/ amb,, Extreme weakness w/ amb., Fatigue w/ amb. POST DISCHARGE ORDERS: Activity Instructions for Disc: Resume previous activity, Activity as tolerated Weight Bearing Status after Di: As tolerated DIET AFTER DISCHARGE: Renal CHECKS AFTER DISCHARGE: Checks after discharge: Check blood press - daily, Check blood sugar, ac/hs, Check your Temp as needed, Weigh Yourself Daily TREATMENT/EQUIPMENT ORDERS: Adaptive Equipment Issued: None CERTIFICATION STATEMENT: Certification Statement: Certification Statement: Based on the above finding, I certify that this patient is confined to the home and needs intermittent senior care care, physical t herapy and/or speech therapy, or continues to need occupational therapy.~ This patient is under my care, and I have initiated the establishment of the plan of care.~ This patient will be followed by myself or a community physician who will periodically review the plan of care. Home Meds Active Scripts Isosorbide Mononitrate (ISOSORBIDE MONONITRATE) 20 Mg Tablet, 20 MG PO BID92 for HTN for 30 Days, #60 TAB 3 Refills Prov:ARLEN HOLLINGSWORTH MD 12/15/20 Aspirin (ASPIRIN EC) 81 Mg Tablet.dr, 81 MG PO DAILYWBKFT for HEART HEALTH for 30 Days, #30 TAB.SR 3 Refills Prov:ARLEN HOLLINGSWORTH MD 12/15/20 Amlodipine Besylate (AMLODIPINE BESYLATE) 5 Mg Tablet, 5 MG PO DAILY for BLOOD PRESSURE for 30 Days, #30 TAB 3 Refills Prov:ARLEN HOLLINGSWORTH MD 12/15/20 Carvedilol (CARVEDILOL ) 12.5 Mg Tablet, 12.5 MG PO BIDWMEALS for BLOOD PRESSURE for 30 Days, #60 TAB 3 Refills Prov:ARLEN HOLLINGSWORTH MD 12/15/20 Hydralazine Hcl (HYDRALAZINE HCL) 50 Mg Tablet, 100 MG PO BID for BLOOD PRESSURE for 30 Days, #120 TAB 3 Refills Prov:ARLEN HOLLINGSWORTH MD 12/15/20 Thiamine Mononitrate (VITAMIN B-1) 100 Mg Tablet, 100 MG PO DAILY for SUPPLEMENT for 30 Days, #30 TAB Prov:FRANK CRUZ MD 11/07/20 [Folic Acid] 1 MG TABLET No Conflict Check, 1 MG PO DAILY for SUPPLEMENT for 30 Days, #30 Prov:FRANK CRUZ MD 11/07/20 ARLEN RODRÍGUEZ MD Jul 08, 2021 11:59
--- NOTE | 2021-07-08 16:27 | NUR ---
Discharge Note: PT DISCHARGED HOME WITH [facility]. PT STABLE AND ALERT UPON DISCHARGE, FLAT AFFECT. PT LEFT FACILITY VIA [employer] AT 1630. PT PIV REMOVED FROM R AC WITHOUT COMPLICATIONS, BANDAGE APPLIED. PT EDUCATED ABOUT DISCHARGE INSTRUCTIONS, DISCHARGE MEDICATIONS, AND FOLLOW-UP INSTRUCTIONS. NO CONCERNS VOICED AT THIS TIME. PT LEFT WITH ALL PERSONAL BELONGINGS. LITA PASTRANA Discharge instructions and discharge home medications reviewed with Patient and a copy given. All questions have been answered and understanding verbalized.
== END 2021-07-08 16:35 | disposition home health service (06) | DRG 640 ==
LOC: ER 15:32 → 5 SOUTH 21:47
PROVIDERS: ADMIT Student in an Organized Health Care Education/Training Program; ATTEND Student in an Organized Health Care Education/Training Program
PROC: 5A1D70Z Performance of Urinary Filtration, Intermittent, Less than 6 Hours Per Day (ICD-10-PCS; 2021-07-03)
PROC: 5A1D70Z Performance of Urinary Filtration, Intermittent, Less than 6 Hours Per Day (ICD-10-PCS; 2021-07-04)
PROC: 5A1D70Z Performance of Urinary Filtration, Intermittent, Less than 6 Hours Per Day (ICD-10-PCS; 2021-07-05)
PROC: 5A1D70Z Performance of Urinary Filtration, Intermittent, Less than 6 Hours Per Day (ICD-10-PCS; principal; 2021-07-06)
DX: E87.5 Hyperkalemia (principal); U07.1 COVID-19; N18.6 End stage renal disease; G93.49 Other encephalopathy; I12.0 Hypertensive chronic kidney disease with stage 5 chronic kidney disease or end stage renal disease; E78.00 Pure hypercholesterolemia, unspecified; E78.5 Hyperlipidemia, unspecified; J44.9 Chronic obstructive pulmonary disease, unspecified; Z59.00 Homelessness unspecified; Z82.49 Family history of ischemic heart disease and other diseases of the circulatory system; Z86.73 Personal history of transient ischemic attack (TIA), and cerebral infarction without residual deficits; Z87.891 Personal history of nicotine dependence; Z91.19 Patient's noncompliance with other medical treatment and regimen; Z99.2 Dependence on renal dialysis; D64.9 Anemia, unspecified; E21.3 Hyperparathyroidism, unspecified; I95.9 Hypotension, unspecified; Z91.15 Patient's noncompliance with renal dialysis; Z88.8 Allergy status to other drugs, medicaments and biological substances
CPT/HCPCS: 36415; 71045; 80048; 80053; 83605; 84100; 85014; 85018; 85025; 86706; 87040; 87340; 87428; 93005; 96374; 96375; C9113; J1644; J2405; U0003; U0005; 99285-25; G0378